=== PATIENT | female | born 1990 | race Caucasian/White ===

== ENCOUNTER 2016-12-12 22:30 | Emergency (ER) | payer MEDICAID ==
[2016-12-12] MEDS ORDERED: LIDOCAINE 5% (700 MG) TRANSDERMAL ADH..PATCH TP ONE (23:51)
[2016-12-12] MEDS ORDERED: AMOXICILLIN TRIHYDRATE 500 MG CAPSULE PO ONE (23:51)
[2016-12-12] MEDS ORDERED: ONDANSETRON ODT 4 MG TAB (6 TAB/DSPK) PO PRN (23:51)
--- NOTE | 2016-12-13 00:02 | ER Document Report ---
ED General - General Chief Complaint: Dizziness Stated Complaint: BACK AND EAR PAIN Time Seen by Provider: 12/12/16 23:28 Notes: Patient is a 26-year-old female who presents with a multitude of apparently unrelated complaints. Her first complaint is that she has constant, throbbing pain to the right ear. Nothing improves or worsens his pain. States that she feels that this is triggering sensations of intermittent vertigo. Denies history of similar symptoms in the past. She is also complaining of mild left. Lumbar spine pain that is been present since she woke up this morning. She chronically has this pain and states is only slightly worse than normal at this time. Denies any bowel or bladder incontinence, difficulty ambulating, weakness or numbness. She has not seen her primary care doctor regarding the above complaints. She denies any chest pain, shortness of breath, focal abdominal pain or dysuria. TRAVEL OUTSIDE OF THE [place] IN LAST 30 DAYS: No - Related Data Allergies/Adverse Reactions: doxycycline [Doxycycline] Allergy (Severe, Verified 12/30/15 14:49) Anaphylaxis metronidazole [From Flagyl] Allergy (Severe, Verified 12/30/15 14:49) Anaphylaxis Metronidazole HCl [From Flagyl] Allergy (Severe, Verified 12/30/15 14:49) Anaphylaxis venom-wasp [Wasp Venom] Allergy (Verified 12/30/15 14:49) Anaphylaxis Past Medical History - General Information source: Patient - Social History Smoking Status: Never Smoker Frequency of alcohol use: None Drug Abuse: None Lives with: Spouse/Significant other Family History: Reviewed & Not Pertinent, Other - There is a family history of epilepsy (the father sister) and elevating muscle cramping (the father). Patient has suicidal ideation: No Patient has homicidal ideation: No - Past Medical History Cardiac Medical History: Reports: Hx Hypertension - preeclampsia Neurological Medical History: Reports: Hx Migraine Renal/ Medical History: Denies: Hx Peritoneal Dialysis Skin Medical History: Denies Hx MRSA Psychiatric Medical History: Reports: Hx Attention Deficit Hyperactivity Disorder, Hx Depression - Immunizations Immunizations up to date: Yes Hx Diphtheria, Pertussis, Tetanus Vaccination: Yes - 09/12/12 Review of Systems - Review of Systems Notes: Constitutional: Negative for fever. HENT: Negative for sore throat. Positive for right ear pain Eyes: Negative for visual changes. Cardiovascular: Negative for chest pain. Respiratory: Negative for shortness of breath. Gastrointestinal: Negative for abdominal pain, vomiting or diarrhea. Genitourinary: Negative for dysuria. Musculoskeletal: Positive for back pain. Skin: Negative for rash. Neurological: Negative for headaches, weakness or numbness. 10 point ROS negative except as marked above and in HPI. Physical Exam - Vital signs Vitals: Temp Pulse Resp BP Pulse Ox 98.3 F 107 H 18 131/94 H 98 12/12/16 22:48 12/12/16 22:48 12/12/16 22:48 12/12/16 22:48 12/12/16 22:48 Interpretation: Normal Notes: PHYSICAL EXAMINATION: GENERAL: Well-appearing, well-nourished and in no acute distress. HEAD: Atraumatic, normocephalic. EYES: Pupils equal round and reactive to light, extraocular movements intact, sclera anicteric, conjunctiva are normal. ENT: nares patent, oropharynx clear without exudates. Moist mucous membranes. Right TM with a purulent effusion. Left TM is clear NECK: Normal range of motion, supple without lymphadenopathy LUNGS: Breath sounds clear to auscultation bilaterally and equal. No wheezes rales or rhonchi. HEART: Regular rate and rhythm without murmurs ABDOMEN: Soft, nontender, normoactive bowel sounds. No guarding, no rebound. No masses appreciated. EXTREMITIES: Normal range of motion, no pitting or edema. No cyanosis. Back: No midline spinal tenderness to step-offs or deformities. Mild pain on palpation of the left maría-lumbar spinal region NEUROLOGICAL: No focal neurological deficits. Moves all extremities spontaneously and on command. PSYCH: Normal mood, normal affect. SKIN: Warm, Dry, normal turgor, no rashes or lesions noted. Course - Re-evaluation Re-evalutation: 12/12/16 23:51 Presentation of a well appearing patient complaining of acute on chronic back pain. No rapid progression of symptoms, systemic symptoms including fevers, chills, weight loss, history of recent bacterial infection, bilateral symptoms, numbness, weakness, difficulty walking, urinary retention or bowel incontinence , personal history of cancer, immunosuppression, diabetes, known AAA, or history of IV drug use. Exam is without point tenderness over vertebral bodies , pulsatile abdominal mass, and patient has symmetric and intact lower extremity strength, sensation, and reflexes without clonus. 2+ symmetric medial malleolar and dorsalis pedis pulses. Based on history and physical, I have a very low suspicion of a concerning etiology of pain including epidural compression syndrome, spinal infection, transverse myelitis, malignancy, abdominal aortic aneurysm, renal colic, acute lower extremity claudication, neurogenic claudication, ankylosing spondylitis, or other intra-abdominal process. Due to absence of concerning risk factors in history and physical as well as absence of rapidly progressive, severe, or bilateral symptoms, will defer imaging at this point. Patient is also complaining of right ear pain with associated vertigo. Otoscopic examination demonstrates a purulent effusion behind the right tympanic membrane with bulging. I suspect this is the cause of her pain and mild vertigo. No pain over the mastoids. Vitals otherwise within normal limits and I do not suspect sepsis. She will be started on amoxicillin 3 times daily for the next 10 days. I have applied a lidocaine patch to her low back. Will also prescribe Zofran and encourage discontinuation of Phenergan which has caused significant sedation as an outpatient. At this time will discharge with return precautions and follow-up recommendations. Verbal discharge instructions given a the bedside and opportunity for questions given. Medication warnings reviewed. Patient is in agreement with this plan and has verbalized understanding of return precautions and the need for primary care follow-up in the next 24-72 hours. - Vital Signs Vital signs: Temp Pulse Resp BP Pulse Ox 98.3 F 94 16 128/86 H 99 12/12/16 22:48 12/13/16 00:16 12/13/16 00:16 12/13/16 00:16 12/13/16 00:16 Discharge - Discharge Clinical Impression: Nausea Left low back pain Qualifiers: Chronicity: acute Sciatica presence: without sciatica Qualified Code(s): M54.5 - Low back pain Right otitis media Qualifiers: Otitis media type: suppurative Chronicity: acute Recurrence: not specified as recurrent Spontaneous tympanic membrane rupture: without spontaneous rupture Qualified Code(s): H66.001 - Acute suppurative otitis media without spontaneous rupture of ear drum, right ear Condition: Good Disposition: HOME, SELF-CARE Additional Instructions: You have been seen in the Emergency Department (ED) today for back pain. Your workup and exam have not shown any acute abnormalities and you are likely suffering from muscle strain or possible problems with your discs, but there is no treatment that will fix your symptoms at this time. You should also purchase a local lidocaine cream such as "aspercreme with lidocaine" and use per bottle instructions to the affected area. Apply heat to the area as often as you are able. Continue to keep active and avoid prolonged periods of bed rest. Please follow up with your doctor as soon as possible regarding today' s ED visit and your back pain. Return to the ED for worsening back pain, fever , weakness or numbness of either leg, or if you develop either (1) an inability to urinate or have bowel movements, or (2) loss of your ability to control your bathroom functions (if you start having "accidents"), or if you develop other new symptoms that concern you. You were also seen today for right ear pain. You have an infection of your right ear and are being started on amoxicillin 3 times daily for the next 10 days. Please take all of the antibiotics until they are gone even if you have resolution of your symptoms before completion of this prescription. Please stop the phenergan. You can take the zofran with which you were sent home as needed for nausea. Prescriptions: Amoxicillin 1 tab PO TID #30 tab Referrals: ANNIE WHITMAN MD [Primary Care Provider] - Follow up as needed
[2016-12-13 00:17] VITALS: BP 128/86
== END 2016-12-13 00:15 | disposition home or self-care (01) ==
LOC: ER 22:30
DX: H66.001 Acute suppurative otitis media without spontaneous rupture of ear drum, right ear (principal); M54.5 Low back pain; G89.29 Other chronic pain; R11.0 Nausea; H92.01 Otalgia, right ear; R42 Dizziness and giddiness; Z88.1 Allergy status to other antibiotic agents; Z87.892 Personal history of anaphylaxis; Z91.038 Other insect allergy status
CPT/HCPCS: 99283; J3490

== ENCOUNTER 2017-03-04 04:49 | Emergency (ER) | payer SELFPAY ==
--- NOTE | 2017-03-04 05:52 | RADIOLOGY REPORT (SQ) ---
EXAM DESCRIPTION: CHEST PA/LAT CLINICAL HISTORY: 26 years, Female, cough COMPARISON: None. NUMBER OF VIEWS: 2 TECHNIQUE: Routine PA and lateral chest radiograph protocol. LIMITATIONS: None. FINDINGS: Bibasilar pulmonary consolidations suspicious for pneumonia. No pleural effusions or pneumothorax. Cardiac size and pulmonary vasculature are normal. Bones are normal. No free peritoneal gas. IMPRESSION: 1. Bibasilar airspace consolidations suspicious for pneumonia. 2011 [employer]- All Rights Reserved
--- NOTE | 2017-03-04 06:28 | ER Document Report ---
ED Flu Like - General Mode of Arrival: Ambulatory Information source: Patient TRAVEL OUTSIDE OF THE [place] IN LAST 30 DAYS: No <ORIN SEXTON - Last Filed: 03/04/17 06:34> <MILKA RICKS - Last Filed: 03/04/17 08:10> - General Chief Complaint: Chest Congestion Stated Complaint: FLU LIKE SYMPTOMS Time Seen by Provider: 03/04/17 06:18 Notes: Patient is a 26 year old female that presents to the emergency department today with complaints of flu-like symptoms for the last three days. Patient denies any recent influenza contacts but does mention that her daughter was recently diagnosed with pneumonia. Patient states she has had a productive cough with yellow sputum and nasal congestion with associated fevers. (ORIN SEXTON) - Related Data Allergies/Adverse Reactions: doxycycline [Doxycycline] Allergy (Severe, Verified 12/30/15 14:49) Anaphylaxis metronidazole [From Flagyl] Allergy (Severe, Verified 12/30/15 14:49) Anaphylaxis Metronidazole HCl [From Flagyl] Allergy (Severe, Verified 12/30/15 14:49) Anaphylaxis venom-wasp [Wasp Venom] Allergy (Verified 12/30/15 14:49) Anaphylaxis Past Medical History - General Information source: Patient - Social History Smoking Status: Never Smoker Cigarette use (# per day): No Frequency of alcohol use: None Drug Abuse: None Lives with: Family Family History: Reviewed & Not Pertinent, Other - There is a family history of epilepsy (the father sister) and elevating muscle cramping (the father). Patient has suicidal ideation: No Patient has homicidal ideation: No - Past Medical History Cardiac Medical History: Reports: Hx Hypertension - preeclampsia Neurological Medical History: Reports: Hx Migraine Psychiatric Medical History: Reports: Hx Attention Deficit Hyperactivity Disorder, Hx Depression Surgical Hx: Negative - Immunizations Immunizations up to date: Yes Hx Diphtheria, Pertussis, Tetanus Vaccination: Yes - 09/12/12 <ORIN SEXTON - Last Filed: 03/04/17 06:34> Review of Systems - Review of Systems Constitutional: See HPI, Fever EENT: See HPI, Nose congestion Cardiovascular: No symptoms reported Respiratory: See HPI, Cough, Wheezing Gastrointestinal: No symptoms reported Genitourinary: No symptoms reported Female Genitourinary: No symptoms reported Musculoskeletal: No symptoms reported Skin: No symptoms reported Hematologic/Lymphatic: No symptoms reported Neurological/Psychological: No symptoms reported -: Yes All other systems reviewed and negative <ORIN SEXTON - Last Filed: 03/04/17 06:34> Physical Exam - Vital signs Interpretation: Normal - General General appearance: Appears well, Alert - HEENT Head: Normocephalic, Atraumatic Eyes: Normal Extraocular movements intact: Yes Pupils: PERRL Tympanic membrane: Retracted - w/ erythema Nasal: Clear rhinorrhea - nasal congestion Pharynx: Erythema - Respiratory Respiratory status: No respiratory distress Breath sounds: Rhonchi, Wheezing Chest palpation: Normal - Cardiovascular Rhythm: Regular Heart sounds: Normal auscultation Murmur: No - Abdominal Inspection: Normal Distension: No distension Bowel sounds: Normal Tenderness: Nontender Organomegaly: No organomegaly - Back Back: Normal, Nontender - Extremities General upper extremity: Normal inspection, Normal ROM. No: Edema General lower extremity: Normal inspection, Normal ROM. No: Edema - Neurological Neuro grossly intact: Yes Cognition: Normal Orientation: AAOx4 Judy Coma Scale Eye Opening: Spontaneous [place] Coma Scale Verbal: Oriented Judy Coma Scale Motor: Obeys Commands [place] Coma Scale Total: 15 Speech: Normal - Psychological Associated symptoms: Normal affect, Normal mood - Skin Skin Temperature: Warm Skin Moisture: Dry Skin Color: Normal <ORIN SEXTON - Last Filed: 03/04/17 06:34> - Vital signs Vitals: Temp Pulse Resp BP Pulse Ox 97.8 F 128 H 28 H 125/86 H 96 03/04/17 05:05 03/04/17 05:05 03/04/17 05:05 03/04/17 05:05 03/04/17 05:05 Course - Laboratory Result Diagrams: 03/04/17 06:43 03/04/17 06:43 - Diagnostic Test Radiology reviewed: Image reviewed, Reports reviewed - Chest x-ray shows bibasilar infiltrates that are new since prior x-rays <MILKA RICKS - Last Filed: 03/04/17 08:10> - Vital Signs Vital signs: Temp Pulse Resp BP Pulse Ox 97.8 F 128 H 28 H 129/82 H 99 03/04/17 05:05 03/04/17 05:05 03/04/17 05:05 03/04/17 06:50 03/04/17 06:50 Discharge <ORIN SEXTON Last Filed: 03/04/17 06:34> <MILKA RICKS - Last Filed: 03/04/17 08:10> - Discharge Clinical Impression: Pneumonia Qualifiers: Pneumonia type: due to unspecified organism Laterality: bilateral Lung location : lower lobe of lung Qualified Code(s): J18.9 - Pneumonia, unspecified organism Condition: Stable Disposition: HOME, SELF-CARE Additional Instructions: Pneumonia: Your examination indicates that you MAY have pneumonia. This is an infection of the lung tissue, usually caused by bacteria or a virus. Symptoms include cough, fever, shaking chills, chest pain, shortness of breath, and coughing up bloody sputum. Treatment for bacterial pneumonia includes rest, antibiotics, increasing your clear liquid intake, a cool mist humidifier at your bedside, and fever medication. Often, a repeat chest X-ray is performed in a few weeks--even if you feel better--to ascertain whether the infection has completely resolved and no underlying lung problem is present. You should call the physician if you develop persistent vomiting, high fever that does not respond to fever medication, increasing shortness of breath , confusion, or lethargy. Also, failure to improve within two to three days is an indication for re-examination. TAKE THE AZITHROMYCIN PRESCRIBED--START TOMORROW. USE THE INHALER 2 PUFFS EVERY 4 HOURS NEEDED FOR WHEEZING AND SHORTNESS OF BREATH. TRY ROBITUSSIN-DM TO SUPPRESS COUGH. DRINK PLENTY OF FLUIDS. GET PLENTY OF REST. FOLLOW UP WITH YOUR PRIMARY CARE DOCTOR IF NOT IMPROVING. RETURN TO THE EMERGENCY ROOM IF ANY NEW OR WORSENING SYMPTOMS. Prescriptions: Azithromycin [Zithromax 250 mg Tablet] 250 mg PO DAILY #4 tablet Scribe Attestation: 03/04/17 08:09 I personally performed the services described in the documentation, reviewed and edited the documentation which was dictated to the scribe in my presence, and it accurately records my words and actions. (MILKA RICKS) Scribe Documentation - Scribe Written by Clara:: Clara Edwards, 03/04/2017 [id number] acting as scribe for :: Karthik <ORIN SEXTON - Last Filed: 03/04/17 06:34>
[2017-03-04 07:07] LABS: ABSOLUTE EOSINOPHILS # (AUTO) 0.1 10^3/uL (0.0-0.6); ABSOLUTE LYMPHOCYTES (AUTO) 1.5 10^3/uL (0.5-4.7); ABSOLUTE MONOCYTES (AUTO) 0.5 10^3/uL (0.1-1.4); ABSOLUTE NEUT (AUTO) 5.1 10^3/uL (1.7-8.2); BASOPHILS % (AUTO) 0.4 % (0-2); EOSINOPHILS % (AUTO) 1.7 % (0-6); HEMATOCRIT 39.7 % (36.0-47.0); HEMOGLOBIN 13.6 g/dL (12.0-15.5); HGB HCT DIFFERENCE 1.1; MEAN CORPUSCULAR HGB CONC 34.2 g/dL (32.0-36.0); MEAN CORPUSCULAR VOLUME 88 fl (80-97); MONOCYTES % (AUTO) 7.1 % (3-13); RED BLOOD COUNT 4.53 10^6/uL (3.72-5.28); SEGMENTED NEUTROPHILS % (AUTO) 69.8 % (42-78); WHITE BLOOD COUNT 7.3 10^3/uL (4.0-10.5)
[2017-03-04 07:37] LABS: ALANINE AMINOTRANSFERASE 32 U/L (9-52); ALBUMIN 3.7 g/dL (3.5-5.0); ALKALINE PHOSPHATASE 51 U/L (38-126); ANION GAP 12 (5-19); ASPARTATE AMINO TRANSFERASE 15 U/L (14-36); BILIRUBIN,DIRECT 0.3 mg/dL (0.0-0.4); BILIRUBIN,TOTAL 0.3 mg/dL (0.2-1.3); BLOOD UREA NITROGEN 8 mg/dL (7-20); CALCIUM 9.2 mg/dL (8.4-10.2); CARBON DIOXIDE 23 mmol/L (22-30); CHLORIDE 106 mmol/L (98-107); CREATININE RESULT 0.61 mg/dL (0.52-1.25); GLUCOSE 104 mg/dL (75-110); POTASSIUM 3.9 mmol/L (3.6-5.0); SODIUM 140.6 mmol/L (137-145); TOTAL PROTEIN 6.6 g/dL (6.3-8.2)
[2017-03-04] MEDS ORDERED: ALBUTEROL SULFATE HFA (90 MCG/PUFF) 8 GM MDI (1 MDI/ER DISP) IH ONE (08:10)
[2017-03-04] MEDS ORDERED: AZITHROMYCIN 250 MG TABLET PO ONE (08:10)
[2017-03-04 08:35] VITALS: BP 120/84
== END 2017-03-04 08:36 | disposition home or self-care (01) ==
LOC: ER 04:49
DX: J18.9 Pneumonia, unspecified organism (principal); R50.9 Fever, unspecified
CPT/HCPCS: 99284; 36415; 87070; 87205; 85025; 80053; 87804; 71020; J3490

== ENCOUNTER 2017-05-20 17:19 | Emergency (ER) | payer SELFPAY ==
[2017-05-20 17:24] VITALS: BP 123/72
--- NOTE | 2017-05-20 17:43 | ER Document Report ---
ED General - General Chief Complaint: Sore Throat Stated Complaint: SORE THROAT Time Seen by Provider: 05/20/17 17:40 Mode of Arrival: Ambulatory Information source: Patient Notes: Patient is a 26 year old female with sore throat, fever (has not checked temperature at home), and right ear pain that started 2 days ago. She states she has history of strep, gets it 5x/year and this feels the same. She reports taking tylenol to help with fever, denies headache, neck pain/stiffness, difficulty swallowing, drooling, n/v/d. She is speaking in full sentences without difficulty. TRAVEL OUTSIDE OF THE [place] IN LAST 30 DAYS: No - Related Data Allergies/Adverse Reactions: doxycycline [Doxycycline] Allergy (Severe, Verified 05/20/17 17:20) Anaphylaxis metronidazole [From Flagyl] Allergy (Severe, Verified 05/20/17 17:20) Anaphylaxis Metronidazole HCl [From Flagyl] Allergy (Severe, Verified 05/20/17 17:20) Anaphylaxis venom-wasp [Wasp Venom] Allergy (Verified 05/20/17 17:20) Anaphylaxis Past Medical History - General Information source: Patient - Social History Smoking Status: Current Every Day Smoker Family History: Reviewed & Not Pertinent, Other - There is a family history of epilepsy (the father sister) and elevating muscle cramping (the father). - Past Medical History Cardiac Medical History: Reports: Hx Hypertension - preeclampsia Neurological Medical History: Reports: Hx Migraine Renal/ Medical History: Denies: Hx Peritoneal Dialysis Skin Medical History: Denies Hx MRSA Psychiatric Medical History: Reports: Hx Attention Deficit Hyperactivity Disorder, Hx Depression - Immunizations Immunizations up to date: Yes Hx Diphtheria, Pertussis, Tetanus Vaccination: Yes - 09/12/12 Review of Systems - Review of Systems Constitutional: See HPI EENT: See HPI Cardiovascular: No symptoms reported Respiratory: No symptoms reported Gastrointestinal: No symptoms reported Genitourinary: No symptoms reported Female Genitourinary: No symptoms reported Musculoskeletal: No symptoms reported Skin: No symptoms reported Hematologic/Lymphatic: No symptoms reported Neurological/Psychological: No symptoms reported Physical Exam - Vital signs Vitals: Temp Pulse Resp BP Pulse Ox 98.2 F 121 H 16 123/72 100 05/20/17 17:23 05/20/17 17:23 05/20/17 17:23 05/20/17 17:23 05/20/17 17:23 - Notes Notes: PHYSICAL EXAM: CONSTITUTIONAL: Alert and oriented, well-appearing and in no acute distress. HENT: Normocephalic, atraumatic. Ear canals without erythema or foreign body, TMs pearly lora with good bony landmarks. Nares clear without erythema, septal hematoma or deviation, airway patent. Oropharynx erythematous with b/l tonsillar exudates and enlargement, no malocclusion. Trachea midline. Uvula midline. Moist mucous membranes. EYES: Pupils equal round and reactive to light, EOM intact. Sclera anicteric, conjunctiva are normal. No entrapment. NECK: supple without lymphadenopathy. No midline tenderness or paraspinous muscle spasms. No step-offs or deformities. ROM intact. HEART: Regular rate and rhythm without murmurs. LUNGS: CTAB and equal. No wheezes, rales or rhonchi. BACK: nontender, no paraspinous spasm, 5+/5 strengths, DTRs 2+, SLR -. EXTREMITIES: Normal range of motion, no pitting edema. No cyanosis. Cap Refill < 3 seconds. NEURO: Cranial nerves grossly intact. Normal sensory/motor exams. PSYCH: Normal mood, normal affect. SKIN: Warm and dry. Normal turgor. No rashes or lesions noted. Course - Re-evaluation Re-evalutation: 05/20/17 17:43 Patient seen and examined. Well-appearing, mildly tachycardic but currently afebrile; otherwise hemodynamically stable. She is not hypoxic. Exam consistent with strep pharyngitis, given IM decadron here and will prescribe oral abx. Low suspicion for peritonsillar abscess, meningitis, sepsis or other emergent condition at this time. Patient in agreement with plan. At this time, will discharge with return precautions and follow-up recommendations. Verbal discharge instructions given at the bedside and opportunity for questions given. Medication warnings reviewed. Patient is in agreement with this plan and has verbalized understanding of return precautions and the need for primary care follow-up in the next 24-72 hours. - Vital Signs Vital signs: Temp Pulse Resp BP Pulse Ox 98.2 F 121 H 16 123/72 100 05/20/17 17:23 05/20/17 17:23 05/20/17 17:23 05/20/17 17:23 05/20/17 17:23 Discharge - Discharge Clinical Impression: Strep pharyngitis Condition: Stable Disposition: HOME, SELF-CARE Additional Instructions: SORE THROAT: Sore throats may be caused by viruses, bacteria, or fungi. Most are due to a virus, and must get better on their own. Bacterial sore throats, particularly those due to "strep," need treatment with antibiotics. If an antibiotic is prescribed, be sure to take the medication for a full 10 days. Failure to take the antibiotic can result in complications such as rheumatic fever. Sometimes, an injection of antibiotics is given instead of pills or liquid. This single "shot" is equal in effectiveness to the oral medication. To relieve symptoms, take acetaminophen for pain. Sip clear liquids frequently, or eat popsicles or ice chips. Anesthetic sprays or lozenges may help. Make sure the air in the room is not too dry. Avoid using decongestants or antihistamines. Call the doctor if there is no improvement in two days, or if you have difficulty breathing, increasing throat pain, high fever, rash, or frequent vomiting. STREP THROAT: Your sore throat is due to the streptococcus germ (strep throat). Strep throat usually makes you feel quite ill with fever and aches, headache, swollen sore throat, and tender bumps under the angles of the jaw. Strep throat requires antibiotic treatment. Although the sore throat may go away by itself, complications such as rheumatic fever, kidney disease, or throat abscess can occur. We usually prescribe antibiotics by mouth. Be sure to take the medicine until it's gone. If you stop early, the strep may come back. If you are vomiting, are severely ill, or can't remember to take pills, we can give you an antibiotic shot. Take acetaminophen or ibuprofen for pain and fever. Sip frequent clear liquids, or use popsicles or ice chips. Anesthetic sprays or lozenges may help. Make sure the air in the room is not too dry. Avoid using decongestants or antihistamines. Call the doctor if there is no improvement in three days, or if you have difficulty breathing, increasing throat pain, high fever, rash, or frequent vomiting. STEROID MEDICATION: You have been given a medicine of the cortisone/steroid class. This medication is used to control inflammation or allergy. It is usually only given for a short period of time, until the acute process subsides. There are usually no side effects from short-term use of cortisone-like medications. Some persons feel an increased sense of well-being and are not sleepy at bedtime. Long-term use of cortisone medications is best avoided, unless required for a severe condition. If your condition does not remit, or relapses after the course of corticosteroid medication, you should consult your physician. FOLLOW-UP CARE: If you have been referred to a physician for follow-up care, call the physician s office for an appointment as you were instructed or within the next two days. If you experience worsening or a significant change in your symptoms, notify the physician immediately or return to the Emergency Department at any time for re-evaluation. Prescriptions: Amox Tr/Potassium Clavulanate [Augmentin 875-125 mg Tablet] 1 tab PO BID #20 tablet
[2017-05-20] MEDS ORDERED: DEXAMETHASONE SOD PHOS INJ 10 MG/1 ML VIAL IM ONE (17:51)
== END 2017-05-20 18:15 | disposition home or self-care (01) ==
LOC: ER 17:19
DX: J02.0 Streptococcal pharyngitis (principal); H92.01 Otalgia, right ear; R00.0 Tachycardia, unspecified; F17.200 Nicotine dependence, unspecified, uncomplicated; Z87.892 Personal history of anaphylaxis; Z88.1 Allergy status to other antibiotic agents; Z91.038 Other insect allergy status
CPT/HCPCS: 99282; 96372; J1100

== ENCOUNTER 2017-09-08 19:10 | Emergency (ER) | payer MEDICAID ==
--- NOTE | 2017-09-08 20:25 | ER Document Report ---
ED Extremity Problem, Upper - General Chief Complaint: Shoulder Pain Stated Complaint: RIGHT SHOULDER PAIN Time Seen by Provider: 09/08/17 20:08 TRAVEL OUTSIDE OF THE [place] IN LAST 30 DAYS: No - Related Data Allergies/Adverse Reactions: doxycycline [Doxycycline] Allergy (Severe, Verified 09/08/17 19:15) Anaphylaxis metronidazole [From Flagyl] Allergy (Severe, Verified 09/08/17 19:15) Anaphylaxis Metronidazole HCl [From Flagyl] Allergy (Severe, Verified 09/08/17 19:15) Anaphylaxis venom-wasp [Wasp Venom] Allergy (Verified 09/08/17 19:15) Anaphylaxis Past Medical History - Social History Family History: Reviewed & Not Pertinent, Other - There is a family history of epilepsy (the father sister) and elevating muscle cramping (the father). - Past Medical History Cardiac Medical History: Reports: Hx Hypertension - preeclampsia Neurological Medical History: Reports: Hx Migraine Renal/ Medical History: Denies: Hx Peritoneal Dialysis Skin Medical History: Denies Hx MRSA Psychiatric Medical History: Reports: Hx Attention Deficit Hyperactivity Disorder, Hx Depression - Immunizations Immunizations up to date: Yes Hx Diphtheria, Pertussis, Tetanus Vaccination: Yes - 09/12/12 Physical Exam - Vital signs Vitals: Temp Pulse Resp BP Pulse Ox 97.7 F 115 H 16 133/93 H 98 09/08/17 19:18 09/08/17 19:18 09/08/17 19:18 09/08/17 19:18 09/08/17 19:18 Course - Vital Signs Vital signs: Temp Pulse Resp BP Pulse Ox 97.7 F 115 H 16 133/93 H 98 09/08/17 19:18 09/08/17 19:18 09/08/17 19:18 09/08/17 19:18 09/08/17 19:18
--- NOTE | 2017-09-08 20:56 | RADIOLOGY REPORT (SQ) ---
EXAM DESCRIPTION: SHOULDER RIGHT 2 OR MORE VIEWS COMPLETED DATE/TIME: 09/08/2017 8:47 pm REASON FOR STUDY: twisted shoulder, cant move COMPARISON: None. NUMBER OF VIEWS: Three views. TECHNIQUE: Internal rotation, external rotation, and Y view images acquired of the right shoulder. LIMITATIONS: None. FINDINGS: MINERALIZATION: Normal. BONES: No acute fracture or dislocation. No worrisome bone lesions. JOINTS: No dislocation. VISUALIZED LUNGS AND RIBS: No pneumothorax. No rib fracture. SOFT TISSUES: No radiopaque foreign body. OTHER: No other significant finding. IMPRESSION: NEGATIVE STUDY OF THE RIGHT SHOULDER. NO RADIOGRAPHIC EVIDENCE OF ACUTE INJURY. TECHNICAL DOCUMENTATION: JOB ID: [id number]- All Rights Reserved Reading location - IP/workstation name: [email or web address]
--- NOTE | 2017-09-08 21:17 | ER Document Report ---
ED Extremity Problem, Upper - General Chief Complaint: Shoulder Pain Stated Complaint: RIGHT SHOULDER PAIN Time Seen by Provider: 09/08/17 20:08 Mode of Arrival: Ambulatory Information source: Patient Notes: 27-year-old female presents to ED for complaint of pain to the right arm and shoulder and neck. She states she has been having pain for about 2 years worse for the last 2 months. She states she has been to Dr. Espinosa multiple times and he has been trying to get a MRI approved by Medicaid has not. She states the muscles from her neck shoulder and arm are all very tender and painful. She states it is painful to turn her head to the right or put her head down. She is afebrile. She states this all became much worse last night when her son grabbed her arm and twisted it. TRAVEL OUTSIDE OF THE [place] IN LAST 30 DAYS: No - HPI Patient complains to provider of: Pain, Shoulder, Other - neck Onset: Other - 2years Recent injury: Possibly Where: Home, Indoors Quality of pain: Sharp, Throbbing Severity of pain: Severe, Worse Pain Level: 5 Associated symptoms: Other - Pain in neck and right shoulder, worse with movement of neck or right arm, pain has been for 2 years worse for the last 2 weeks. Exacerbated by: Movement Relieved by: Nothing Similar symptoms previously: Yes Recently seen / treated by doctor: Yes - Related Data Allergies/Adverse Reactions: doxycycline [Doxycycline] Allergy (Severe, Verified 09/08/17 19:15) Anaphylaxis metronidazole [From Flagyl] Allergy (Severe, Verified 09/08/17 19:15) Anaphylaxis Metronidazole HCl [From Flagyl] Allergy (Severe, Verified 09/08/17 19:15) Anaphylaxis venom-wasp [Wasp Venom] Allergy (Verified 09/08/17 19:15) Anaphylaxis Past Medical History - General Information source: Patient - Social History Smoking Status: Former Smoker Cigarette use (# per day): No Chew tobacco use (# tins/day): No Smoking Education Provided: No Frequency of alcohol use: None Drug Abuse: None Lives with: Family Family History: Reviewed & Not Pertinent, Other - There is a family history of epilepsy (the father sister) and elevating muscle cramping (the father). Patient has suicidal ideation: No Patient has homicidal ideation: No - Past Medical History Cardiac Medical History: Reports: Hx Hypertension - preeclampsia Pulmonary Medical History: Reports: None EENT Medical History: Reports: None Neurological Medical History: Reports: Hx Migraine, Hx Seizures Endocrine Medical History: Reports: None Renal/ Medical History: Reports: None Malignancy Medical History: Reports: None GI Medical History: Reports: None Musculoskeltal Medical History: Reports Hx Musculoskeletal Deformity, Reports Hx Musculoskeletal Trauma Psychiatric Medical History: Reports: Hx Anxiety, Hx Attention Deficit Hyperactivity Disorder, Hx Depression Traumatic Medical History: Reports: None Infectious Medical History: Reports: None Surgical Hx: Negative Past Surgical History: Reports: None - Immunizations Immunizations up to date: Yes Hx Diphtheria, Pertussis, Tetanus Vaccination: Yes - 09/12/12 Review of Systems - Review of Systems Constitutional: No symptoms reported EENT: No symptoms reported Cardiovascular: No symptoms reported Respiratory: No symptoms reported Gastrointestinal: No symptoms reported Genitourinary: No symptoms reported Female Genitourinary: No symptoms reported Musculoskeletal: Joint pain - right shoulder, Muscle pain, Muscle stiffness, Neck pain Skin: No symptoms reported Hematologic/Lymphatic: No symptoms reported Neurological/Psychological: No symptoms reported -: Yes All other systems reviewed and negative Physical Exam - Vital signs Vitals: Temp Pulse Resp BP Pulse Ox 97.7 F 115 H 16 133/93 H 98 09/08/17 19:18 09/08/17 19:18 09/08/17 19:18 09/08/17 19:18 09/08/17 19:18 Interpretation: Normal - General General appearance: Appears well, Alert - HEENT Head: Normocephalic, Atraumatic Eyes: Normal Pupils: PERRL Ears: Normal External canal: Normal Tympanic membrane: Normal Sinus: Normal Nasal: Normal Mouth/Lips: Caries Mucous membranes: Normal Pharynx: Normal Neck: Normal - Respiratory Respiratory status: No respiratory distress Chest status: Nontender Breath sounds: Normal Chest palpation: Normal - Cardiovascular Rhythm: Regular Heart sounds: Normal auscultation Murmur: No - Abdominal Inspection: Normal Distension: No distension Bowel sounds: Normal Tenderness: Nontender Organomegaly: No organomegaly - Back Back: Normal, Tender - cervical spine, Vertebra tenderness, Other - tenderness to neck and shoulder muscles. No: Deformity/step-off, CVA tenderness, Scars, Scoliosis, Wounds - Extremities General upper extremity: Normal inspection, Normal color, Normal temperature General lower extremity: Normal inspection, Nontender, Normal color, Normal ROM , Normal temperature, Normal weight bearing. No: Christina's sign Shoulder: Tender, Limited ROM - Due to pain. No: Abrasion, Deformity, Dislocation, Ecchymosis, Instability, Laceration - Neurological Neuro grossly intact: Yes Cognition: Normal Orientation: AAOx4 [place] Coma Scale Eye Opening: Spontaneous Judy Coma Scale Verbal: Oriented [place] Coma Scale Motor: Obeys Commands Judy Coma Scale Total: 15 Speech: Normal Motor strength normal: LUE, RUE, LLE, RLE Sensory: Normal - Psychological Associated symptoms: Normal affect, Normal mood - Skin Skin Temperature: Warm Skin Moisture: Dry Skin Color: Normal Course - Re-evaluation Re-evalutation: 09/09/17 02:20 Patient is seen for shoulder pain that she has had for a long time. She is on narcotic medication for her chronic pain, as well as Valium for seizures. Her x -rays are negative. Patient was instructed to follow-up with her primary care doctor as well as orthopedics. - Vital Signs Vital signs: Temp Pulse Resp BP Pulse Ox 98.7 F 98 16 124/85 100 09/08/17 22:05 09/08/17 22:05 09/08/17 19:18 09/08/17 22:05 09/08/17 22:05 - Diagnostic Test Radiology reviewed: Image reviewed, Reports reviewed Procedures - Immobilization Right Shoulder Time completed: 22:08 Pre-Proc Neuro Vasc Exam: Normal Immobilizer type: Sling Performed by: PCT Post-Proc Neuro Vasc Exam: Normal Alignment checked and good: Yes Discharge - Discharge Clinical Impression: Neck pain of over 3 months duration Pain in right shoulder Qualifiers: Chronicity: chronic Qualified Code(s): M25.511 - Pain in right shoulder Condition: Stable Disposition: HOME, SELF-CARE Additional Instructions: You were seen today for shoulder pain to the right shoulder that you state has been going on for about 2 years. You state that it got worse about 2 weeks ago and then the pain came unbearable after your son twisted your arm last night. Your x-rays are negative for any bony abnormality. Your CT of the cervical spine was negative for any bony abnormalities. You state you have been going to see Jesús for this shoulder pain and have been trying to get an MRI approved for this shoulder pain. You state you have hydrocodone 10/325 that you take for your pain. You state you are taken diazepam for your seizures she is also a muscle relaxer. Chronic Pain Control Stress, inactivity, and depression make pain more severe regardless of the cause of the pain. Stress and poor physical condition can cause pain such as headaches and backache. Relaxation: Rest in a quiet place with your eyes closed for 20 minutes twice daily. Concentrate on a pleasant image, or simply "feel" your breathing. Clear your mind. Stress management: Deal with your "stressors." Either take action, or eliminate the stressor from your life. Don't let things hang over you. Accept those things you can't change. Nutrition: Eat small, balanced meals -- don't skip, don't overeat. Meals should be high-carbohydrate, low-sugar, low-fat. Exercise: Exercise helps painful conditions and eases stress. Get 30 minutes of moderate exercise, five days a week. Do an activity that does not flare your pain. Precautions: Pain which continues to disrupt daily activities, or which changes in nature, requires a medical evaluation. Pain Clinic referral is available. We do not manage chronic pain in the Emergency Department. We will try to appropriately help you through an acute flare of your chronic painful condition , but for on-going chronic pain that does not improve, you will need to see your private doctor or house painting instructor. We do not provide repeated medication management of chronic painful conditions. If you wish, we can provide the name of local pain management physicians. Exercise Program for the Shoulder Since the shoulder moves in so many directions, the joint attachment is weak. Muscles provide most of the stability to the shoulder. You must exercise your shoulder to prevent painful instability or stiffening. PASSIVE - These may be begun within a few days of the injury. While standing, lean forward, allowing the arm to hang down towards the floor. Move the arm in small circles while slowly twisting your chest towards and away from the hanging arm. Do this for one minute. ACTIVE - These may be performed when the doctor gives permission. Begin with the arms at the sides. Raise the arms forward (shoulder's width apart) until they reach shoulder level. Then slowly swing both arms back until they are aiming straight out away from each other. Then bring them forward again, and finally, lower them to your sides. Repeat 20 to 30 times. As you improve, put weights in your hands for the exercise. Start with one pound, and work up to 10 pounds. Never use more than is comfortable. Athletes may work up to 30 pounds. She just happened to be coming out MUSCLE STRAIN: You have strained a muscle -- torn the fibers within the muscle. This often occurs with strenuous exertion, or during an injury that suddenly stretches the muscle. The seriousness of a strain varies. Some strains heal within days, others cause problems for months. X-rays cannot show a muscle strain. X-rays are taken only if symptoms suggest that a fracture could be present. The usual treatment of a muscle strain is rest and ice packs. Sometimes, a sling, splint, or crutches may be necessary to rest the muscle. The muscle can be used again once pain subsides. Severe strains require a special exercise and stretching program to prevent permanent stiffness and disability. Your doctor will advise you if this will be necessary. Call the doctor immediately if pain or swelling becomes severe, or if numbness or discoloration develop. ICE PACKS: Apply ice packs frequently against the painful area. Many different schedules are recommended, such as "20 minutes on, 20 minutes off" or "one hour ice, two hours rest." If you need to work, you may need to go longer between ice treatments. You should plan to have the area ice packed AT LEAST one fourth of the time. The ice should be applied over the wrap, tape, or splint, or over a layer of cloth -- not directly against the skin. Some ice bags have a built-in cloth and can be put directly on the skin. WARM PACKS: After approximately two days, apply gentle heat (such as a heating pad or hot water bottle) for about 20 to 30 minutes about every two hours -- at least four times daily. Warmth and elevation will help you make a more rapid recovery , and will ease the pain considerably. Do not use HOT heat, and never apply heat for longer than 30 minutes. The continuous heat can invisibly damage skin and muscles -- even when no burn is seen on the surface. Damaged muscles can make you MORE sore. FOLLOW-UP CARE: If you have been referred to a physician for follow-up care, call the physician s office for an appointment as you were instructed or within the next two days. If you experience worsening or a significant change in your symptoms, notify the physician immediately or return to the Emergency Department at any time for re-evaluation. Forms: Elevated Blood Pressure Referrals: HERNESTO CALDERON MD [ACTIVE STAFF] - Follow up as needed MILDRED ESPINOSA MD [EMERITUS] - Follow up as needed
--- NOTE | 2017-09-08 21:32 | RADIOLOGY REPORT (SQ) ---
EXAM DESCRIPTION: CT CERVICAL SPINE WITHOUT COMPLETED DATE/TIME: 09/08/2017 9:21 pm REASON FOR STUDY: cervical spine tenderness COMPARISON: None. TECHNIQUE: Axial images acquired through the cervical spine without intravenous contrast. Images re viewed with lung, soft tissue and bone windows. Reconstructed coronal and sagittal MPR images review ed. Images stored on PACS. All CT scanners at this facility use dose modulation, iterative reconstruction, and/or weight based d osing when appropriate to reduce radiation dose to as low as reasonably achievable (ALARA). [facility]: Dose Right [facility]: CareDose [facility]: Dose Right [facility]: Teradose 4D [facility]: [employer] RADIATION DOSE: CT Rad equipment meets quality standard of care and radiation dose reduction techniq ues were employed. CTDIvol: 12.2 mGy. DLP: 259 mGy-cm. mGy. LIMITATIONS: None. FINDINGS: ALIGNMENT: Anatomic. MINERALIZATION: Normal. VERTEBRAL BODIES: No fractures or dislocation. DISCS: No significant disc disease. FACETS, LATERAL MASSES, POSTERIOR ELEMENTS: No fractures. No dislocation. No acute findings. HARDWARE: None in the spine. VISUALIZED RIBS: No fractures. LUNG APICES AND SOFT TISSUES: No significant or acute findings. OTHER: No other significant finding. IMPRESSION: NO ACUTE OR SIGNIFICANT FINDINGS IN THE CERVICAL SPINE. TECHNICAL DOCUMENTATION: JOB ID: [id number] Quality ID # [id number]: Final reports with documentation of one or more dose reduction techniques (e.g., Au tomated exposure control, adjustment of the mA and/or kV according to patient size, use of iterative reconstruction technique) 2010 [employer]- All Rights Reserved Reading location - IP/workstation name: [email or web address]
[2017-09-08 22:08] VITALS: BP 124/85
== END 2017-09-08 22:27 | disposition home or self-care (01) ==
LOC: ER 19:10
DX: G89.29 Other chronic pain (principal); M25.511 Pain in right shoulder; Z79.891 Long term (current) use of opiate analgesic; M54.2 Cervicalgia; M79.601 Pain in right arm; K02.9 Dental caries, unspecified; R56.9 Unspecified convulsions; Z79.899 Other long term (current) drug therapy; Z87.892 Personal history of anaphylaxis; Z88.1 Allergy status to other antibiotic agents; Z91.038 Other insect allergy status; Z87.891 Personal history of nicotine dependence
CPT/HCPCS: 72125; 99284

== ENCOUNTER 2017-11-05 15:07 | Emergency (ER) | payer MEDICAID ==
[2017-11-05 15:14] VITALS: BP 119/74
[2017-11-05] MEDS ORDERED: DEXAMETHASONE SOD PHOS INJ 10 MG/1 ML VIAL IV ONE (15:47)
[2017-11-05] MEDS ORDERED: IBUPROFEN SUSP 100 MG/5 ML ORAL SYRINGE PO ONE (15:47)
[2017-11-05] MEDS ORDERED: PENICILLIN G BENZATHINE 1.2 MILLION UNIT/2 ML DISP.SYRIN IM ONE (15:47)
[2017-11-05] MEDS ORDERED: NORMAL SALINE 1000 ML 1,000 ML IV ONE (15:50)
--- NOTE | 2017-11-05 15:56 | ER Document Report ---
ED ENT - General Chief Complaint: Ear Pain Stated Complaint: EAR PAIN/SORE THROAT Time Seen by Provider: 11/05/17 15:31 Notes: Patient is a 27-year-old female presents emergency room with a chief complaint of bilateral ear pain left worse than the right, sore throat. Patient states that her symptoms started with sore throat and right ear pain 3 days ago and and his progressed to affecting her left ear. She denies any fevers today and has been taking Tylenol and Motrin at home. States her last dose of Tylenol was yesterday. Patient states that she saw her primary care doctor 2 days ago was diagnosed with strep and right otitis media and sent home on a p.o. antibiotic. Family member at the bedside states that she is not taking any antibiotics and he just picked up today. Otherwise admits to subjective fevers at home. Admits to pain but able to tolerate p.o. fluids. TRAVEL OUTSIDE OF THE [place] IN LAST 30 DAYS: No - Related Data Allergies/Adverse Reactions: doxycycline [Doxycycline] Allergy (Severe, Verified 09/08/17 19:15) Anaphylaxis metronidazole [From Flagyl] Allergy (Severe, Verified 09/08/17 19:15) Anaphylaxis Metronidazole HCl [From Flagyl] Allergy (Severe, Verified 09/08/17 19:15) Anaphylaxis Sulfa (Sulfonamide Antibiotics) Allergy (Verified 11/05/17 15:09) venom-wasp [Wasp Venom] Allergy (Verified 09/08/17 19:15) Anaphylaxis Past Medical History - Social History Smoking Status: Current Every Day Smoker Family History: Reviewed & Not Pertinent, Other - There is a family history of epilepsy (the father sister) and elevating muscle cramping (the father). - Past Medical History Cardiac Medical History: Reports: Hx Hypertension - preeclampsia Neurological Medical History: Reports: Hx Migraine, Hx Seizures Renal/ Medical History: Denies: Hx Peritoneal Dialysis Musculoskeltal Medical History: Reports Hx Musculoskeletal Deformity, Reports Hx Musculoskeletal Trauma Skin Medical History: Denies Hx MRSA Psychiatric Medical History: Reports: Hx Anxiety, Hx Attention Deficit Hyperactivity Disorder, Hx Depression - Immunizations Immunizations up to date: Yes Hx Diphtheria, Pertussis, Tetanus Vaccination: Yes - 09/12/12 Review of Systems - Review of Systems Constitutional: See HPI EENT: See HPI Cardiovascular: No symptoms reported Respiratory: No symptoms reported Gastrointestinal: No symptoms reported Musculoskeletal: No symptoms reported Skin: No symptoms reported -: Yes All other systems reviewed and negative Physical Exam - Vital signs Vitals: Temp Pulse Resp BP Pulse Ox 98.8 F 117 H 16 119/74 99 11/05/17 15:11 11/05/17 15:11 11/05/17 15:11 11/05/17 15:11 11/05/17 15:11 - Notes Notes: PHYSICAL EXAM GENERAL: Alert, interacts well. HEENT: NCAT, pale conjunctiva, extraocular movements intact, pupils PERRL. external ear normal, left with evidence of external auditory canal tenderness, without blood/drainage, cerumen impaction, B/l TM intact with evidence of bulging, injection, MMM, Uvula midline. Airway patent. Evidence of pharyngeal erythema b/l. No evidence of tonsillar enlargement, peritonsillar abscess, retropharyngeal abscess. NECK: Full range of motion. Supple. Trachea midline. LUNGS: Clear to auscultation bilaterally, no wheezes, rales, or rhonchi. No respiratory distress. HEART: Regular rate and rhythm. No murmurs, gallops, or rubs. ABDOMEN: Soft, nondistended, nontender. No guarding, rebound, or rigidity.. Bowel sounds present in all 4 quadrants. EXTREMITIES: Moves all 4 extremities spontaneously. No edema, radial and dorsalis pedis pulses 2/4 bilaterally. No cyanosis. NEUROLOGICAL: Alert and oriented x4. Normal speech. PSYCH: Normal affect, normal mood. SKIN: Warm, dry, normal turgor. No rashes or lesions noted. Course - Re-evaluation Re-evalutation: 11/05/17 17:24 Presentation is most consistent with a viral upper respiratory infection. With associated bilateral otitis media and otitis externa in the left ear patient is overall well appearance, vitals within normal limits, well-hydrated. Patient denies any headache, neck pain, and has no evidence of meningismus on examination. Lungs are clear bilaterally. No evidence of respiratory distress. Based on clinical exam and history, I do not suspect an acute pneumonia, meningitis, strep pharyngitis, or an acute encephalitis. No laboratory or imaging testing is indicated at this time. Will discharge patient with return precautions and followup recommendations. They are in agreement this plan have verbalized understanding return precautions. - Vital Signs Vital signs: Temp Pulse Resp BP Pulse Ox 98.8 F 117 H 16 119/74 99 11/05/17 15:11 11/05/17 15:11 11/05/17 15:11 11/05/17 15:11 11/05/17 15:11 Discharge - Discharge Clinical Impression: Strep pharyngitis Otitis externa Qualifiers: Otitis externa type: unspecified type Chronicity: acute Laterality: left Qualified Code(s): H60.502 - Unspecified acute noninfective otitis externa, left ear Otitis media Qualifiers: Otitis media type: unspecified Chronicity: acute Qualified Code(s): H66.90 - Otitis media, unspecified, unspecified ear Condition: Good Disposition: HOME, SELF-CARE Instructions: Acetaminophen, Use of Ear Drops ([facility]), Otitis Externa ([facility]), Otitis Media ([facility]) Additional Instructions: You have been given a dose of steroids to help with your throat discomfort. Please continue to take ibuprofen 600 mg every 6 hours or Tylenol 1000 mg every 6 hours as needed for throat discomfort. You can also gargle with salt water. Continue to drink plenty of fluids. Follow-up with your primary care doctor in the next several days. Return if you become unable to swallow, have difficulty breathing, pass out, have persistent vomiting that prevents you from being able to tolerate fluids, or have any other symptoms that are concerning to you. Prescriptions: Neomycin/Polymyxin B Sulf/Hc [Vcvidkqa-Vrjnfxnmv-Iz Ear Soln] 4 drp OT QID 7 Days solution
== END 2017-11-05 18:13 | disposition home or self-care (01) ==
LOC: ER 15:07
DX: J02.0 Streptococcal pharyngitis (principal); H60.502 Unspecified acute noninfective otitis externa, left ear; H66.90 Otitis media, unspecified, unspecified ear; H92.03 Otalgia, bilateral
CPT/HCPCS: 99283; 96372; 96361; 96374; 87070; 87880; 87077; J3490; J0561; J7030; J1100

== ENCOUNTER 2018-05-19 14:43 | Emergency (ER) | payer MEDICAID ==
--- NOTE | 2018-05-19 15:05 | ER Document Report ---
ED Seizure - General Chief Complaint: Probable Seizure Stated Complaint: POSSIBLE SEIZURE Time Seen by Provider: 05/19/18 14:52 - HPI Patient complains to provider of: History of seizures Continued on arrival to ED: No Can details of seizure be obtained/verified: Yes Episode witnessed (by whom): No Character of seizure: Complete loss/conscious Post-ictal symptoms: Confusion, Headache Injuries: Head Notes: Patient is a 27-year-old female that presents to the emergency department for chief complaint of seizure. Patient has history of seizure disorder and states her neurologist became sick and was unable to see patients about 6 months ago. She is in the process of following up with a new neurologist but is unable to see them until after May 31, 2018. Patient is currently out of her Keppra. Her last seizure was reportedly a week ago and she was seen at another emergency room. She was given diazepam for breakthrough seizure by that ER and states she has not had to take it. Today she was at home alone and was starting to walk up the stairs. She reports waking up after being incontinent of urine. She had her left arm in the stairwell railing. She states she did hit her face. She called her on face time who called EMS. Currently patient is complaining of right shoulder pain, a headache, and facial pain. Past Medical History: Seizure disorder Past Surgical History: Negative Social History: Daily tobacco. Frequent marijuana. Denies alcohol. Family History: Reviewed and noncontributory for presenting illness Allergies: Reviewed, see documented allergy list. REVIEW OF SYSTEMS: CONSTITUTIONAL : No fever No chills No diaphoresis No recent illness EENT: Forehead pain No vision changes No congestion No sore throat CARDIOVASCULAR: No chest pain No palpitations RESPIRATORY: No shortness of breath No cough No difficulty breathing GASTROINTESTINAL: No abdominal pain No nausea No vomiting No diarrhea GENITOURINARY: No dysuria No hematuria No difficulty urinating MUSCULOSKELETAL: No back pain No leg pain Right shoulder pain SKIN: No rashes No lesions LYMPHATIC: No swollen, enlarged glands. NEUROLOGICAL: No lightheadedness headache No weakness No paresthesias Seizure PSYCHIATRIC: No anxiety No depression PHYSICAL EXAMINATION: Vital signs reviewed, nursing noted reviewed. GENERAL: Appears postictal and in no acute distress. HEAD: No cephalhematoma. EYES: Eyes appear normal, extraocular movements intact, sclera anicteric, conjunctiva are normal. ENT: Forehead tenderness to palpation with no bony fluctuance. No nasal septal hematoma, nares patent, oropharynx clear without exudates. Moist mucous membranes. NECK: Midline and paraspinal cervical muscle tenderness to palpation, no step- off. Supple without lymphadenopathy LUNGS: Breath sounds clear to auscultation bilaterally and equal. No wheezes rales or rhonchi. HEART: Regular rate and rhythm without murmurs ABDOMEN: Soft, nontender, normoactive bowel sounds. No rebound, guarding, or rigidity. No masses appreciated. EXTREMITIES: Normal left wrist, elbow, and shoulder exam. Tenderness to palpation of right shoulder with normal range of motion and no deformity. No overlying skin changes to right shoulder. no pitting or edema. NEUROLOGICAL: No focal neurological deficits. Moves all extremities spontaneously Motor and sensory grossly intact on exam. PSYCH: Normal mood, normal affect. SKIN: Warm, Dry, normal turgor, superficial abrasion to left arm, forehead ecchymosis with no cephalhematoma - Related Data Allergies/Adverse Reactions: doxycycline [Doxycycline] Allergy (Severe, Verified 09/08/17 19:15) Anaphylaxis metronidazole [From Flagyl] Allergy (Severe, Verified 09/08/17 19:15) Anaphylaxis Metronidazole HCl [From Flagyl] Allergy (Severe, Verified 09/08/17 19:15) Anaphylaxis Sulfa (Sulfonamide Antibiotics) Allergy (Verified 11/05/17 15:09) venom-wasp [Wasp Venom] Allergy (Verified 09/08/17 19:15) Anaphylaxis Past Medical History - Social History Smoking Status: Current Every Day Smoker Family History: Reviewed & Not Pertinent, Other - There is a family history of epilepsy (the father sister) and elevating muscle cramping (the father). - Past Medical History Cardiac Medical History: Reports: Hx Hypertension - preeclampsia Neurological Medical History: Reports: Hx Migraine, Hx Seizures Renal/ Medical History: Denies: Hx Peritoneal Dialysis Musculoskeletal Medical History: Reports Hx Musculoskeletal Deformity, Reports Hx Musculoskeletal Trauma Skin Medical History: Denies Hx MRSA Psychiatric Medical History: Reports: Hx Anxiety, Hx Attention Deficit Hyperactivity Disorder, Hx Depression - Immunizations Immunizations up to date: Yes Hx Diphtheria, Pertussis, Tetanus Vaccination: Yes - 09/12/12 Physical Exam - Vital signs Vitals: Temp Resp BP Pulse Ox 99.0 F 15 131/91 H 100 05/19/18 14:47 05/19/18 14:47 05/19/18 14:47 05/19/18 14:47 Course - Re-evaluation Re-evalutation: 05/19/18 15:12 Vitals reviewed. Nursing notes reviewed. Patient appears postictal but is recalling most of the events of today. She was placed in cervical collar because of her cervical tenderness. CT scan of her head, cervical spine and face will be obtained because of her fall and signs of injury. X-ray of the right shoulder obtained to evaluate for dislocation or fracture. Patient placed in seizure precautions. She was given Keppra IV for her breakthrough seizures. 05/19/18 16:01 Patient reevaluated. Images today are negative for acute injury. Cervical Spine CT 05/19/18 15:00 IMPRESSION: No fracture or static subluxation of the cervical spine. Facial Bones CT 05/19/18 15:00 IMPRESSION: No fracture or dislocation of the facial bones. Head CT 05/19/18 15:00 IMPRESSION: NORMAL BRAIN CT WITHOUT CONTRAST. EVIDENCE OF ACUTE STROKE: NO. Shoulder X-Ray 05/19/18 15:00 IMPRESSION: NEGATIVE STUDY OF THE RIGHT SHOULDER. NO RADIOGRAPHIC EVIDENCE OF ACUTE INJURY. She had complete resolution of her postictal state. She is remained hemodynamically stable. She will be written a prescription for Keppra to begin at home. She was referred to neurology. She states she will continue to try and make an appointment with neurology for follow-up. She will also follow with her primary care provider in the next few days for reevaluation. She was told to return to the emergency room if she has repeat seizure in the next 24 hours or seizure occurring prior to resolution of postictal state. She is in agreement with this plan and stable at discharge. - Vital Signs Vital signs: Temp Pulse Resp BP Pulse Ox 99.0 F 20 135/77 H 100 05/19/18 14:47 05/19/18 15:01 05/19/18 15:01 05/19/18 15:01 - EKG Interpretation by Me Additional EKG results interpreted by me: 05/19/18 15:15 Interpreted by myself 1452: Sinus tachycardia, rate 101, normal axis, no ectopy, no ST elevation Discharge - Discharge Clinical Impression: Seizure disorder Condition: Stable Disposition: HOME, SELF-CARE Instructions: Seizure, Known Epileptic ([facility]) Additional Instructions: Please return to the emergency department if you have any worsening, or concern of your symptoms. Please return to the emergency department if you develop chest pain, difficulty breathing, severe abdominal pain, or ongoing vomiting. Please follow-up with your primary care physician in 2-3 days and any other recommended physicians. If prescribed, take all medications as directed. If you have any questions or concerns do not hesitate to return the emergency department for evaluation. Return to the emergency room if you have another seizure in the next 24 hours or for any new or R worsening symptoms. Please continue to pursue follow-up with neurology Prescriptions: Levetiracetam [Keppra] 500 mg PO BID #30 tablet Referrals: SUMAN DARNELL MD [Primary Care Provider] - Follow up as needed REBECCA HAMILTON MD [NO LOCAL MD] - Follow up in 3-5 days
[2018-05-19] MEDS ORDERED: LEVETIRACETAM 1000 MG/NACL-ISO 1,000 MG/100 ML RTUPB IV SCH (15:30)
--- NOTE | 2018-05-19 15:33 | RADIOLOGY REPORT (SQ) ---
EXAM DESCRIPTION: CT HEAD WITHOUT COMPLETED DATE/TIME: 05/19/2018 3:22 pm REASON FOR STUDY: trauma COMPARISON: 01/02/2016. TECHNIQUE: Axial images acquired through the brain without intravenous contrast. Images reviewed wi th bone, brain and subdural windows. Additional sagittal and coronal reconstructions were generated. Images stored on PACS. All CT scanners at this facility use dose modulation, iterative reconstruction, and/or weight based d osing when appropriate to reduce radiation dose to as low as reasonably achievable (ALARA). [facility]: Dose Right [facility]: CareDose [facility]: Dose Right [facility]: Teradose 4D [facility]: [employer] RADIATION DOSE: CT Rad equipment meets quality standard of care and radiation dose reduction techniq ues were employed. CTDIvol: 53.2 mGy. DLP: 991 mGy-cm. mGy. LIMITATIONS: None. FINDINGS: VENTRICLES: Normal size and contour. CEREBRUM: No masses. No hemorrhage. No midline shift. No evidence for acute infarction. Normal gra y/white matter differentiation. No areas of low density in the white matter. CEREBELLUM: No masses. No hemorrhage. No alteration of density. No evidence for acute infarction. EXTRAAXIAL SPACES: No fluid collections. No masses. ORBITS AND GLOBE: No intra- or extraconal masses. Normal contour of globe without masses. CALVARIUM: No fracture. PARANASAL SINUSES: No fluid or mucosal thickening. SOFT TISSUES: No mass or hematoma. OTHER: No other significant finding. IMPRESSION: NORMAL BRAIN CT WITHOUT CONTRAST. EVIDENCE OF ACUTE STROKE: NO. COMMENT: Quality ID # [id number]: Final reports with documentation of one or more dose reduction techniques (e.g., Automated exposure control, adjustment of the mA and/or kV according to patient size, use of iterative reconstruction technique) TECHNICAL DOCUMENTATION: JOB ID: [id number] 2018 [employer]- All Rights Reserved Reading location - IP/workstation name: [email or web address]
--- NOTE | 2018-05-19 15:33 | RADIOLOGY REPORT (SQ) ---
EXAM DESCRIPTION: CT CERVICAL SPINE WITHOUT COMPLETED DATE/TIME: 05/19/2018 3:22 pm REASON FOR STUDY: trauma COMPARISON: None. TECHNIQUE: Axial images acquired through the cervical spine without intravenous contrast. Images re viewed with lung, soft tissue and bone windows. Reconstructed coronal and sagittal MPR images review ed. Images stored on PACS. All CT scanners at this facility use dose modulation, iterative reconstruction, and/or weight based d osing when appropriate to reduce radiation dose to as low as reasonably achievable (ALARA). [facility]: Dose Right [facility]: CareDose [facility]: Dose Right [facility]: Teradose 4D [facility]: [employer] RADIATION DOSE: CT Rad equipment meets quality standard of care and radiation dose reduction techniq ues were employed. CTDIvol: 15.7 mGy. DLP: 314 mGy-cm. mGy. LIMITATIONS: None. FINDINGS: ALIGNMENT: Anatomic. MINERALIZATION: Normal. VERTEBRAL BODIES: No fractures or dislocation. DISCS: No significant disc disease. FACETS, LATERAL MASSES, POSTERIOR ELEMENTS: No fractures. No dislocation. No acute findings. HARDWARE: None in the spine. VISUALIZED RIBS: No fractures. LUNG APICES AND SOFT TISSUES: No significant or acute findings. OTHER: No other significant finding. IMPRESSION: No fracture or static subluxation of the cervical spine. TECHNICAL DOCUMENTATION: JOB ID: [id number] Quality ID # [id number]: Final reports with documentation of one or more dose reduction techniques (e.g., Au tomated exposure control, adjustment of the mA and/or kV according to patient size, use of iterative reconstruction technique) 2010 [employer]- All Rights Reserved Reading location - IP/workstation name: [email or web address]
--- NOTE | 2018-05-19 15:35 | RADIOLOGY REPORT (SQ) ---
EXAM DESCRIPTION: CT FACIAL AREA WITHOUT COMPLETED DATE/TIME: 05/19/2018 3:22 pm REASON FOR STUDY: trauma COMPARISON: None. TECHNIQUE: Noncontrasted images through the facial bones and orbits windowed for bone and soft tissu e. Additional coronal and sagittal reconstructed images reviewed. All images stored on PACS. All CT scanners at this facility use dose modulation, iterative reconstruction, and/or weight based d osing when appropriate to reduce radiation dose to as low as reasonably achievable (ALARA). [facility]: Dose Right [facility]: CareDose [facility]: Dose Right [facility]: Teradose 4D [facility]: [employer] RADIATION DOSE: CT Rad equipment meets quality standard of care and radiation dose reduction techniq ues were employed. CTDIvol: 30.4 mGy. DLP: 477 mGy-cm. mGy. LIMITATIONS: None. FINDINGS: FACIAL BONES: No fracture or bone lesion. ORBITS: Intact. No fracture. Symmetric intact globes and retroorbital soft tissues. PARANASAL SINUSES: Clear. No significant mucosal thickening, mass or fluid. No nasal polyps. Maxill arnol sinus outlets are patent. SOFT TISSUES: No mass or edema. INFERIOR BRAIN: Limited view. No acute findings. OTHER: No other significant finding. IMPRESSION: No fracture or dislocation of the facial bones. TECHNICAL DOCUMENTATION: JOB ID: [id number] Quality ID # [id number]: Final reports with documentation of one or more dose reduction techniques (e.g., Au tomated exposure control, adjustment of the mA and/or kV according to patient size, use of iterative reconstruction technique) 2010 [email or web address]- All Rights Reserved Reading location - IP/workstation name: [email or web address]
--- NOTE | 2018-05-19 15:47 | RADIOLOGY REPORT (SQ) ---
EXAM DESCRIPTION: SHOULDER RIGHT 2 OR MORE VIEWS COMPLETED DATE/TIME: 05/19/2018 3:33 pm REASON FOR STUDY: trauma COMPARISON: None. NUMBER OF VIEWS: Three views. TECHNIQUE: Internal rotation, external rotation, and Y view images acquired of the right shoulder. LIMITATIONS: None. FINDINGS: MINERALIZATION: Normal. BONES: No acute fracture or dislocation. No worrisome bone lesions. JOINTS: No dislocation. VISUALIZED LUNGS AND RIBS: No pneumothorax. No rib fracture. SOFT TISSUES: No radiopaque foreign body. OTHER: No other significant finding. IMPRESSION: NEGATIVE STUDY OF THE RIGHT SHOULDER. NO RADIOGRAPHIC EVIDENCE OF ACUTE INJURY. TECHNICAL DOCUMENTATION: JOB ID: [id number] [employer]- All Rights Reserved Reading location - IP/workstation name: [email or web address]
[2018-05-19 16:33] VITALS: BP 122/73
--- NOTE | 2018-05-19 18:18 | EKG REPORT ---
SEVERITY:- OTHERWISE NORMAL ECG - SINUS TACHYCARDIA : Confirmed by: Ermias Parker MD 19-May-2018 18:17:36
== END 2018-05-19 16:36 | disposition home or self-care (01) ==
LOC: ER 14:43
DX: G40.909 Epilepsy, unspecified, not intractable, without status epilepticus (principal); F17.200 Nicotine dependence, unspecified, uncomplicated; Z88.2 Allergy status to sulfonamides
CPT/HCPCS: 93005; 99285; 96365; 73030; 70450; 70486; 72125; 93010; J1953

== ENCOUNTER 2018-06-12 23:57 | Emergency (ER) | payer MEDICAID ==
[2018-06-13] MEDS ORDERED: KETOROLAC TROMETHAMINE INJ/PF 30 MG/1 ML SDV IV ONE (00:26)
[2018-06-13] MEDS ORDERED: NORMAL SALINE 1000 ML 1,000 ML IV ONE (00:26)
--- NOTE | 2018-06-13 00:32 | ER Document Report ---
ED General - General Chief Complaint: Breathing Difficulty Stated Complaint: POSSIBLE FEVER Time Seen by Provider: 06/13/18 00:19 Notes: Patient is a 27-year-old female that comes to the emergency department for chief complaint of 2 weeks of sick symptoms including cough, some mild congestion, she also states that she has been having fevers and chills for the past 2 days. She denies nausea, vomiting. She reports persistent cough but denies difficulty breathing when she is not coughing. She denies smoking, asthma, or any pulmonary history. She states she just completed a course of amoxicillin that she was placed on by her primary care provider. Past medical history of seizures, anxiety/depression, medicated for both. LMP within the past month. She has not had the influenza vaccine. TRAVEL OUTSIDE OF THE [place] IN LAST 30 DAYS: No - Related Data Allergies/Adverse Reactions: doxycycline [Doxycycline] Allergy (Severe, Verified 09/08/17 19:15) Anaphylaxis metronidazole [From Flagyl] Allergy (Severe, Verified 09/08/17 19:15) Anaphylaxis Metronidazole HCl [From Flagyl] Allergy (Severe, Verified 09/08/17 19:15) Anaphylaxis Sulfa (Sulfonamide Antibiotics) Allergy (Verified 11/05/17 15:09) venom-wasp [Wasp Venom] Allergy (Verified 09/08/17 19:15) Anaphylaxis Past Medical History - General Information source: Patient - Social History Smoking Status: Never Smoker Drug Abuse: None Lives with: Family Family History: Reviewed & Not Pertinent, Other - There is a family history of epilepsy (the father sister) and elevating muscle cramping (the father). - Past Medical History Cardiac Medical History: Reports: Hx Hypertension - preeclampsia Neurological Medical History: Reports: Hx Migraine, Hx Seizures Renal/ Medical History: Denies: Hx Peritoneal Dialysis Musculoskeletal Medical History: Reports Hx Musculoskeletal Deformity, Reports Hx Musculoskeletal Trauma Skin Medical History: Denies Hx MRSA Psychiatric Medical History: Reports: Hx Anxiety, Hx Attention Deficit Hyperactivity Disorder, Hx Depression Surgical Hx: Negative - Immunizations Immunizations up to date: Yes Hx Diphtheria, Pertussis, Tetanus Vaccination: Yes - 09/12/12 Review of Systems - Review of Systems Constitutional: See HPI EENT: See HPI Cardiovascular: No symptoms reported Respiratory: See HPI Gastrointestinal: No symptoms reported Genitourinary: No symptoms reported Female Genitourinary: No symptoms reported Musculoskeletal: No symptoms reported Skin: No symptoms reported Hematologic/Lymphatic: No symptoms reported Neurological/Psychological: No symptoms reported Physical Exam - Vital signs Vitals: Temp Pulse Resp BP Pulse Ox 99.2 F 138 H 16 121/77 98 06/13/18 00:04 06/13/18 00:04 06/13/18 00:04 06/13/18 00:04 06/13/18 00:04 - Notes Notes: GENERAL: Slightly disheveled and unwell appearing, no distress, alert and responsive HEAD: Normocephalic, atraumatic. EYES: Pupils equal, round, and reactive to light. Extraocular movements intact. ENT: Oral mucosa dry, tongue midline. Oropharynx unremarkable. Airway patent. Minimal nasal congestion. no nasal septal hematoma, TM's intact. NECK: Full range of motion. Supple. Trachea midline. LUNGS: Clear to auscultation bilaterally, no wheezes, rales, or rhonchi. No respiratory distress. A few coarse breath sounds bilaterally, frequent nonproductive cough, no wheezing, tachypnea, or respiratory distress. HEART: Tachycardia, normal rhythm, no murmur. ABDOMEN: Soft, non-tender. Non-distended. Bowel sounds present in all 4 quadrants. GENITOURINARY: Deferred EXTREMITIES: Moves all 4 extremities spontaneously. No edema, normal radial and dorsalis pedis pulses bilaterally. No cyanosis. BACK: no cervical, thoracic, lumbar midline tenderness. No saddle anesthesia, normal distal neurovascular exam. NEUROLOGICAL: Alert and oriented x3. Normal speech. [cranial nerves II through XII grossly intact]. PSYCH: Normal affect, normal mood. SKIN: Warm, dry, normal turgor. No rashes or lesions noted. Course - Re-evaluation Re-evalutation: Patient tachycardic, frequent nonproductive cough, mildly ill-appearing on evaluation. Lungs are clear. No hypoxia. No respiratory distress. Chest x-ray shows left lower lobe pneumonia. This is consistent with patient's worsening symptoms and developing fevers. CBC shows mild leukocytosis and elevation of neutrophils. Chemistry unremarkable. test is negative. Influenza A is positive as well. Possible influenza pneumonia although based on patient's evaluation I have a stronger suspicion of bacterial pneumonia with leukocytosis and left shift, initial viral upper respiratory infection, I suspect concurrent influenza infection. I discussed with patient in detail. She does not have a smoking or asthma history, after IV fluids her tachycardia resolved, she is not hypoxic or in any respiratory distress. She declines Tamiflu after discussion and after it was offered. Decision was made to proceed with treatment of suspected bacterial pneumonia, I provided her with work- release, discussed symptom management and expectations, discussed close follow- up and return precautions in detail. Patient states satisfaction and agreement with plan. She is allergic to doxycycline, therefore after discussion of options along with recent amoxicillin use she was placed on levofloxacin instead. Stable at time of discharge. - Vital Signs Vital signs: Temp Pulse Resp BP Pulse Ox 99.2 F 98 20 112/70 100 06/13/18 00:04 06/13/18 02:43 06/13/18 02:43 06/13/18 02:43 06/13/18 02:43 - Laboratory Result Diagrams: 06/13/18 00:48 06/13/18 00:48 Laboratory results interpreted by me: 06/13/18 06/13/18 00:48 00:48 WBC 12.6 H Absolute Neutrophils 9.0 H Sodium 136.1 L Glucose 113 H Discharge - Discharge Clinical Impression: Influenza A, Chills, Cough Pneumonia Qualifiers: Pneumonia type: due to unspecified organism Laterality: left Lung location: lower lobe of lung Qualified Code(s): J18.1 - Lobar pneumonia, unspecified organism Condition: Stable Disposition: HOME, SELF-CARE Additional Instructions: Your workup indicates both influenza a infection and a for the possibility of a bacterial pneumonia because your blood counts do indicate this. Your chest x-ray does show a pneumonia. Take Levaquin antibiotic as prescribed to completion. Take Tessalon if needed for cough. Drink plenty fluids and rest. Take Tylenol or ibuprofen for fever/chills, you can take up to 1000 mg of Tylenol or 600 mg of ibuprofen every 6 hours (you can take these at the same time if needed). Follow-up with primary care. Return if you worsen including difficulty breathing, vomiting, passing out, or any other concerning or worsening symptoms. Prescriptions: Benzonatate [Tessalon Perle 100 mg Capsule] 100 mg PO Q8HP PRN #20 cap PRN Reason: Levofloxacin [Levaquin 750 mg Tablet] 750 mg PO DAILY #4 tablet Forms: Return to Work Referrals: SUMAN DARNELL MD [Primary Care Provider] - Follow up as needed
--- NOTE | 2018-06-13 01:03 | RADIOLOGY REPORT (SQ) ---
EXAM DESCRIPTION: XR CHEST 2 VIEWS COMPLETED DATE/TME: 06/13/2018 00:26 CLINICAL HISTORY: 27 years, Female, fevers, worsening cough x 2 weeks COMPARISON: 03/04/2017 chest NUMBER OF VIEWS: 2 TECHNIQUE: Frontal and lateral views of the chest LIMITATIONS: None. FINDINGS: The heart size is normal. There is some equivocal left basilar infiltrate. No pneumothorax. Lungs are otherwise clear. IMPRESSION: Equivocal left basilar infiltrate. Follow-up recommended. copyright 2010 [employer]- All Rights Reserved
[2018-06-13] MEDS ORDERED: LEVOFLOXACIN 750 MG TABLET PO ONE (01:17)
[2018-06-13 01:19] LABS: A TYPE INFLUENZA AG POSITIVE (NEGATIVE); B INFLUENZA AG NEGATIVE (NEGATIVE)
[2018-06-13] MEDS ORDERED: LIDOCAINE 2% INJ-PF (20 MG/ML) 10 ML AMPUL NEB ONE (01:53)
[2018-06-13 02:03] LABS: ABSOLUTE EOSINOPHILS # (AUTO) 0.3 10^3/uL (0.0-0.6); ABSOLUTE LYMPHOCYTES (AUTO) 2.4 10^3/uL (0.5-4.7); ABSOLUTE MONOCYTES (AUTO) 0.8 10^3/uL (0.1-1.4); BASOPHILS % (AUTO) 0.3 % (0-2); HEMATOCRIT 39.7 % (36.0-47.0); HEMOGLOBIN 13.3 g/dL (12.0-15.5); LYMPHOCYTES % (AUTO) 19.2 % (13-45); MEAN CORPUSCULAR HEMOGLOBIN 29.7 pg (27.0-33.4); MEAN CORPUSCULAR HGB CONC 33.4 g/dL (32.0-36.0); MEAN CORPUSCULAR VOLUME 89 fl (80-97); MONOCYTES % (AUTO) 6.6 % (3-13); PLATELET COUNT 274 10^3/uL (150-450); RED BLOOD COUNT 4.47 10^6/uL (3.72-5.28); RED CELL DISTRIBUTION WIDTH 13.6 % (11.5-14.0); SEGMENTED NEUTROPHILS % (AUTO) 71.9 % (42-78); TOTAL CELLS COUNTED % (AUTO) 100 %; WHITE BLOOD COUNT 12.6 10^3/uL (4.0-10.5)
[2018-06-13 02:15] LABS: ANION GAP 7 (5-19); BLOOD UREA NITROGEN 11 mg/dL (7-20); CALCIUM 9.2 mg/dL (8.4-10.2); CARBON DIOXIDE 25 mmol/L (22-30); CHLORIDE 104 mmol/L (98-107); GLUCOSE 113 mg/dL (75-110); POTASSIUM 4.2 mmol/L (3.6-5.0); SODIUM 136.1 mmol/L (137-145)
[2018-06-13 02:47] VITALS: BP 112/70
== END 2018-06-13 02:49 | disposition home or self-care (01) ==
LOC: ER 23:57
DX: J10.08 Influenza due to other identified influenza virus with other specified pneumonia (principal); J18.1 Lobar pneumonia, unspecified organism; R05 Cough; R50.9 Fever, unspecified; R09.81 Nasal congestion; R56.9 Unspecified convulsions; F41.9 Anxiety disorder, unspecified; F32.9 Major depressive disorder, single episode, unspecified; Z79.899 Other long term (current) drug therapy; Z87.892 Personal history of anaphylaxis; Z88.1 Allergy status to other antibiotic agents; Z88.2 Allergy status to sulfonamides; Z91.038 Other insect allergy status
CPT/HCPCS: 94640; 99283; 96361; 96374; 36415; 87040; 84703; 85025; 80048; 87804; 71046; J1885; J7030; J3490 ×2

== ENCOUNTER 2018-12-15 20:24 | Emergency (ER) | payer MEDICAID ==
--- NOTE | 2018-12-15 23:46 | ER Document Report ---
HPI - HPI Time Seen by Provider: 12/15/18 23:06 Pain Level: 1 Context: Patient is a 28-year-old female who presents in the emergency department with a chief complaint of right ear pain. She states that she received a piercing in her right ear, but noticed that she ended up having some swelling to that area. She does have tenderness more at the mastoid process. Denies any past medical history. Patient also states that she does have some burning upon urination. Denies abdominal pain. Denies nausea, vomiting, or diarrhea. Denies any sinus pressure. Denies any fever. - ROS Notes: REVIEW OF SYSTEMS: CONSTITUTIONAL : Denies recent illness. Denies recent unintentional weight loss. Denies fever, chills, or sweats. EENT: See HPI CARDIOVASCULAR: Denies chest pain. RESPIRATORY: Denies shortness of breath, cough, congestion, difficulty breathing, or wheezing. GASTROINTESTINAL: Denies nausea, vomiting, and diarrhea. Denies abdominal pain. Denies constipation. GENITOURINARY: See HPI MUSCULOSKELETAL: Denies neck and back pain. Denies joint pain or swelling. SKIN: Denies rash, itchiness, or lesions HEMATOLOGIC : Denies easy bruising or bleeding. LYMPHATIC: Denies swollen, painful, enlarged glands. NEUROLOGICAL: Denies no numbness or tingling denies weakness. Denies headache. Denies altered mental status. Denies alteration in speech. PSYCHIATRIC: Denies stress, anxiety, alteration in sleep patterns, or depression. All other systems reviewed and negative. - REPRODUCTIVE Reproductive: DENIES: : Past Medical History - General Information source: Patient - Social History Smoking Status: Unknown if Ever Smoked Family History: Reviewed & Not Pertinent, Other - There is a family history of epilepsy (the father sister) and elevating muscle cramping (the father). - Past Medical History Cardiac Medical History: Reports: Hx Hypertension - preeclampsia Neurological Medical History: Reports: Hx Migraine, Hx Seizures Renal/ Medical History: Denies: Hx Peritoneal Dialysis Musculoskeletal Medical History: Reports Hx Musculoskeletal Deformity, Reports Hx Musculoskeletal Trauma Skin Medical History: Denies Hx MRSA Psychiatric Medical History: Reports: Hx Anxiety, Hx Attention Deficit Hyperactivity Disorder, Hx Depression - Immunizations Immunizations up to date: Yes Hx Diphtheria, Pertussis, Tetanus Vaccination: Yes - 09/12/12 Vertical Provider Document - CONSTITUTIONAL Agree With Documented VS: Yes Exam Limitations: No Limitations General Appearance: No Apparent Distress - INFECTION CONTROL TRAVEL OUTSIDE OF THE [place] IN LAST 30 DAYS: No - HEENT HEENT: Atraumatic. negative: Pharyngeal Exudate, Pharyngeal Tenderness, Pharyngeal Erythema, Tympanic Membrane Red, Tympanic Membrane Bulging Notes: Tenderness at mastoid process. Edema and erythema noted to the right external ear and area of "migraine piercing." - NECK Neck: Normal Inspection - RESPIRATORY Respiratory: No Respiratory Distress - CARDIOVASCULAR Cardiovascular: Regular Rate Pulses: Normal: Radial - MUSCULOSKELETAL/EXTREMETIES Musculoskeletal/Extremeties: FROM - NEURO Level of Consciousness: Awake, Alert, Appropriate Motor/Sensory: No Motor Deficit, No Sensory Deficit - DERM Integumentary: Warm, Dry Course - Re-evaluation Re-evalutation: 12/15/18 23:45 Patient has tenderness noted to her right mastoid process. I am concerned for possible mastoiditis. The patient will be for a CT of the facial bones to evaluate mastoiditis. No otitis media or otitis externa noted. The piercing is on the inner aspect of her ear and she states that it is a "migraine piercing." There is some erythema noted and looks like dried purulent drainage. I do not appreciate any fluctuance. 12/16/18 02:[address] does not show any mastoiditis. Patient will be sent home on clindamycin since she is allergic to sulfa drugs. Would like to cover possible MRSA. The clindamycin will also cover her urinary tract infection. Follow-up precautions were given. Verbal discharge instructions were given to the patient. They verbalized understanding. They are stable for discharge. - Vital Signs Vital signs: Temp Pulse Resp BP Pulse Ox 98.1 F 104 H 15 118/79 99 12/15/18 20:52 12/15/18 20:52 12/15/18 20:52 12/15/18 20:52 12/15/18 20:52 Discharge - Discharge Clinical Impression: Right ear pain Cellulitis Qualifiers: Site of cellulitis: other site Qualified Code(s): L03.818 - Cellulitis of other sites Condition: Stable Disposition: HOME, SELF-CARE Additional Instructions: You was seen today in the emergency department for right ear pain. You are being treated for cellulitis and for a possible abscess that may have developed. Your CT was normal. Please follow-up with your primary care provider in regards to this visit. If your symptoms are getting worse in the next 3 to 5 days, please return to the emerge department. Prescriptions: Clindamycin HCl [Cleocin 150 mg Capsule] 300 mg PO Q6 7 Days #56 capsule Referrals: SUMAN DARNELL MD [Primary Care Provider] - Follow up as needed
[2018-12-16 00:47] LABS: APPEARANCE,URINE SLIGHTLY-CLOUDY; BILIRUBIN,URINE NEGATIVE (NEGATIVE); COLOR,URINE AMBER; GLUCOSE, URINE NEGATIVE (NEGATIVE); KETONES,URINE NEGATIVE (NEGATIVE); LEUKOCYTE ESTERASE,URINE MODERATE (NEGATIVE); NITRITE,URINE POSITIVE (NEGATIVE); PROTEIN,URINE NEGATIVE (NEGATIVE); URINE SPECIFIC GRAVITY 1.013; UROBILINOGEN,URINE NEGATIVE mg/dL (<2.0)
--- NOTE | 2018-12-16 02:37 | RADIOLOGY REPORT (SQ) ---
EXAM DESCRIPTION: CT ORBITS WITHOUT IV CONTRAST COMPLETED DATE/TME: 12/15/2018 23:37 CLINICAL HISTORY: 28 years, Female, eval mastoiditis?; R ear pain COMPARISON: None. TECHNIQUE: Axial CT images of the orbits were obtained without contrast. Sagittal and coronal reformats were performed. DLP 347 Images stored on PACS. All CT scanners at this facility use dose modulation, iterative reconstruction, and/or weight based dosing when appropriate to reduce radiation dose to as low as reasonably achievable (ALARA). [facility]: Dose Right [facility]: CareDose [facility]: Dose Right [facility]: Teradose 4D [facility]: Smart WeDuc LIMITATIONS: None. FINDINGS: No focal areas of soft tissue swelling. The globes are intact. No retro-orbital hematoma. The orbits are intact. The paranasal sinuses and mastoid air cells are clear. The bilateral external auditory canals appear normal. The bilateral middle ears appear unremarkable. The nasal bones are intact. The zygomatic arches are intact. The visualized portions of the mandible and maxilla appear intact. IMPRESSION: No acute findings. No evidence of mastoiditis. TECHNICAL DOCUMENTATION: Quality ID # [id number]: Final reports with documentation of one or more dose reduction techniques (e.g., Automated exposure control, adjustment of the mA and/or kV according to patient size, use of iterative reconstruction technique) copyright 2011 [employer]- All Rights Reserved
[2018-12-16] MEDS ORDERED: CLINDAMYCIN HCL 150 MG CAPSULE PO ONE (02:50)
[2018-12-16 03:20] VITALS: BP 123/82
== END 2018-12-16 03:19 | disposition home or self-care (01) ==
LOC: ER 20:24
DX: L03.818 Cellulitis of other sites (principal); H92.01 Otalgia, right ear; R30.9 Painful micturition, unspecified; I10 Essential (primary) hypertension
CPT/HCPCS: 99283; 87086; 87088; 81001; 87186; 70480; J3490

== ENCOUNTER 2019-02-17 18:52 | Emergency (ER) | payer SELFPAY ==
--- NOTE | 2019-02-17 19:16 | ER Document Report ---
ED Medical Screen (RME) - General Chief Complaint: High Blood Sugar Stated Complaint: DIFFICULTY URINATING Time Seen by Provider: 02/17/19 19:04 Primary Care Provider: SUMAN DARNELL MD [Primary Care Provider] - Follow up as needed Mode of Arrival: Ambulatory Information source: Patient Notes: 28-year-old female presents with the emergency department with complaints of bilateral flank pain right worse than left. She also reports she has not been able to void since yesterday. Patient denies fever vomiting diarrhea. Father reports that she has been in bed for a month. She reports she is really tired wiped out. Denies history of depression. Father checked patient's sugar yesterday and it said that was high but his strips are probably old he reports. He reports patient has a history of some type of seizures. She is very disheveled I have greeted and performed a rapid initial assessment of this patient. A comprehensive ED assessment and evaluation of the patient, analysis of test results and completion of the medical decision making process will be conducted by additional ED providers. Dictation of this chart was performed using voice recognition software; therefore, there may be some unintended grammatical errors. TRAVEL OUTSIDE OF THE [place] IN LAST 30 DAYS: No - Related Data Allergies/Adverse Reactions: doxycycline [Doxycycline] Allergy (Severe, Verified 02/17/19 18:56) Anaphylaxis metronidazole [From Flagyl] Allergy (Severe, Verified 02/17/19 18:56) Anaphylaxis Metronidazole HCl [From Flagyl] Allergy (Severe, Verified 02/17/19 18:56) Anaphylaxis Sulfa (Sulfonamide Antibiotics) Allergy (Verified 02/17/19 18:56) venom-wasp [Wasp Venom] Allergy (Verified 02/17/19 18:56) Anaphylaxis Past Medical History - Past Medical History Cardiac Medical History: Reports: Hx Hypertension - preeclampsia Neurological Medical History: Reports: Hx Migraine, Hx Seizures Renal/ Medical History: Denies: Hx Peritoneal Dialysis Musculoskeltal Medical History: Reports Hx Musculoskeletal Deformity, Reports Hx Musculoskeletal Trauma Skin Medical History: Denies Hx MRSA Psychiatric Medical History: Reports: Hx Anxiety, Hx Attention Deficit Hyperactivity Disorder, Hx Depression - Immunizations Immunizations up to date: Yes Hx Diphtheria, Pertussis, Tetanus Vaccination: Yes - 09/12/12 Physical Exam - Vital signs Vitals: Temp Pulse Resp BP Pulse Ox 98.2 F 104 H 18 127/92 H 100 02/17/19 18:55 02/17/19 18:55 02/17/19 18:55 02/17/19 18:55 02/17/19 18:55 Course - Vital Signs Vital signs: Temp Pulse Resp BP Pulse Ox 98.2 F 104 H 18 127/92 H 100 02/17/19 18:55 02/17/19 18:55 02/17/19 18:55 02/17/19 18:55 02/17/19 18:55 Doctor's Discharge - Discharge Referrals: SUMAN DARNELL MD [Primary Care Provider] - Follow up as needed
[2019-02-17 19:54] LABS: ABSOLUTE BASOPHILS # (AUTO) 0.1 10^3/uL (0.0-0.2); ABSOLUTE EOSINOPHILS # (AUTO) 0.4 10^3/uL (0.0-0.6); ABSOLUTE LYMPHOCYTES (AUTO) 2.7 10^3/uL (0.5-4.7); ABSOLUTE MONOCYTES (AUTO) 0.6 10^3/uL (0.1-1.4); ABSOLUTE NEUT (AUTO) 6.7 10^3/uL (1.7-8.2); EOSINOPHILS % (AUTO) 4.2 % (0-6); HEMATOCRIT 44.3 % (36.0-47.0); HEMOGLOBIN 14.9 g/dL (12.0-15.5); LYMPHOCYTES % (AUTO) 25.6 % (13-45); MEAN CORPUSCULAR HGB CONC 33.6 g/dL (32.0-36.0); MEAN CORPUSCULAR VOLUME 86 fl (80-97); MONOCYTES % (AUTO) 5.7 % (3-13); PLATELET COUNT 304 10^3/uL (150-450); RED BLOOD COUNT 5.13 10^6/uL (3.72-5.28); RED CELL DISTRIBUTION WIDTH 14.1 % (11.5-14.0); SEGMENTED NEUTROPHILS % (AUTO) 63.5 % (42-78); TOTAL CELLS COUNTED % (AUTO) 100 %; WHITE BLOOD COUNT 10.6 10^3/uL (4.0-10.5)
[2019-02-17 20:02] LABS: APPEARANCE,URINE CLEAR; BILIRUBIN,URINE NEGATIVE (NEGATIVE); COLOR,URINE YELLOW; GLUCOSE, URINE NEGATIVE (NEGATIVE); KETONES,URINE NEGATIVE (NEGATIVE); LEUKOCYTE ESTERASE,URINE SMALL (NEGATIVE); NITRITE,URINE POSITIVE (NEGATIVE); PROTEIN,URINE NEGATIVE (NEGATIVE); URINE SPECIFIC GRAVITY 1.019; UROBILINOGEN,URINE NEGATIVE mg/dL (<2.0)
[2019-02-17 20:10] LABS: ALBUMIN 3.9 g/dL (3.5-5.0); ALKALINE PHOSPHATASE 39 U/L (38-126); ANION GAP 8 (5-19); ASPARTATE AMINO TRANSFERASE 15 U/L (14-36); BILIRUBIN,DIRECT 0.1 mg/dL (0.0-0.4); BILIRUBIN,TOTAL 0.3 mg/dL (0.2-1.3); BLOOD UREA NITROGEN 11 mg/dL (7-20); CALCIUM 9.3 mg/dL (8.4-10.2); CARBON DIOXIDE 28 mmol/L (22-30); CHLORIDE 104 mmol/L (98-107); GLUCOSE 82 mg/dL (75-110); TOTAL PROTEIN 6.8 g/dL (6.3-8.2)
[2019-02-17 20:15] LABS: URINE AMPHETAMINES SCREEN UNCONFIRMED POSITIVE; URINE BARBITURATES SCREEN NEGATIVE; URINE BENZODIAZEPINES SCREEN UNCONFIRMED POSITIVE; URINE COCAINE SCREEN NEGATIVE; URINE MARIJUANA (THC) SCREEN UNCONFIRMED POSITIVE; URINE METHADONE SCREEN NEGATIVE; URINE PHENCYCLIDINE SCREEN NEGATIVE
[2019-02-17] MEDS ORDERED: NITROFURANTOIN MONOHYD/M-CRYST 100 MG CAPSULE PO ONE (21:42)
--- NOTE | 2019-02-17 21:45 | ER Document Report ---
ED General - General Chief Complaint: High Blood Sugar Stated Complaint: DIFFICULTY URINATING Time Seen by Provider: 02/17/19 19:04 Primary Care Provider: SUMAN DARNELL MD [Primary Care Provider] - Follow up in 1 week Mode of Arrival: Ambulatory Notes: 28-year-old female presents with the emergency department with complaints of bilateral flank pain right worse than left. She also reports she has not been able to void since yesterday. Patient denies fever vomiting diarrhea. Father reports that she has been in bed for a month. She reports she is really tired wiped out. Denies history of depression. Father checked patient's sugar yesterday and it said that was high but his strips are probably old he reports. He reports patient has a history of some type of seizures. She is very disheveled TRAVEL OUTSIDE OF THE [place] IN LAST 30 DAYS: No - HPI Onset: Other Onset/Duration: Persistent Quality of pain: Achy Severity: Moderate Pain Level: 4 Associated symptoms: None Exacerbated by: Denies Relieved by: Denies Similar symptoms previously: No Recently seen / treated by doctor: No - Related Data Allergies/Adverse Reactions: doxycycline [Doxycycline] Allergy (Severe, Verified 02/17/19 18:56) Anaphylaxis metronidazole [From Flagyl] Allergy (Severe, Verified 02/17/19 18:56) Anaphylaxis Metronidazole HCl [From Flagyl] Allergy (Severe, Verified 02/17/19 18:56) Anaphylaxis Sulfa (Sulfonamide Antibiotics) Allergy (Verified 02/17/19 18:56) venom-wasp [Wasp Venom] Allergy (Verified 02/17/19 18:56) Anaphylaxis Past Medical History - General Information source: Patient - Social History Smoking Status: Current Every Day Smoker Cigarette use (# per day): Yes Frequency of alcohol use: None Drug Abuse: Marijuana Occupation: None Lives with: Family Family History: Reviewed & Not Pertinent, Other - There is a family history of epilepsy (the father sister) and elevating muscle cramping (the father). Patient has suicidal ideation: No Patient has homicidal ideation: No - Past Medical History Cardiac Medical History: Reports: Hx Hypertension - preeclampsia Neurological Medical History: Reports: Hx Migraine, Hx Seizures Renal/ Medical History: Denies: Hx Peritoneal Dialysis Musculoskeletal Medical History: Reports Hx Musculoskeletal Deformity, Reports Hx Musculoskeletal Trauma Skin Medical History: Denies Hx MRSA Psychiatric Medical History: Reports: Hx Anxiety, Hx Attention Deficit Hyperactivity Disorder, Hx Depression Surgical Hx: Negative - Immunizations Immunizations up to date: Yes Hx Diphtheria, Pertussis, Tetanus Vaccination: Yes - 09/12/12 Review of Systems - Review of Systems Notes: Review HPI for review of systems., All other systems negative Physical Exam - Vital signs Vitals: Temp Pulse Resp BP Pulse Ox 98.2 F 104 H 18 127/92 H 100 02/17/19 18:55 02/17/19 18:55 02/17/19 18:55 02/17/19 18:55 02/17/19 18:55 - General General appearance: Alert In distress: None - HEENT Head: Normocephalic, Atraumatic Eyes: Normal Conjunctiva: Normal Extraocular movements intact: Yes Ears: Normal External canal: Normal Tympanic membrane: Normal Nasal: Normal Mouth/Lips: Normal Mucous membranes: Moist Pharynx: Normal. No: Erythema, Exudate Neck: Normal, Supple. No: Lymphadenopathy - Respiratory Respiratory status: No respiratory distress Chest status: Nontender Breath sounds: Normal Chest palpation: Normal - Cardiovascular Rhythm: Regular Heart sounds: Normal auscultation Murmur: No - Abdominal Inspection: Normal Distension: No distension Tenderness: Nontender Organomegaly: No organomegaly - Back Back: Normal, CVA tenderness. No: Vertebra tenderness - Extremities General upper extremity: Normal ROM, Normal strength General lower extremity: Normal ROM, Normal strength - Neurological Neuro grossly intact: Yes Cognition: Normal Orientation: AAOx4 Judy Coma Scale Eye Opening: Spontaneous [place] Coma Scale Verbal: Oriented Judy Coma Scale Motor: Obeys Commands [place] Coma Scale Total: 15 Speech: Normal - Psychological Associated symptoms: Normal affect, Normal mood - Skin Skin Temperature: Warm Skin Moisture: Dry Skin Color: Normal Course - Re-evaluation Re-evalutation: 02/17/19 21:54 28-year-old female presents with the emergency department with complaints of bilateral flank pain right worse than left. She also reports she has not been able to void since yesterday. Patient denies fever vomiting diarrhea. Father reports that she has been in bed for a month. Patient positive for UTI, slight leukocytosis. Patient instructed on Macrobid. Patient instructed on the importance of pushing fluids. She was also instructed to follow-up with her primary care provider in [place] for recheck within 1 week. She verbalized understanding to all instructions. 02/17/19 19:40 02/17/19 19:40 MCV 86 fl (80-97) 02/17/19 19:40 MCH 29.0 pg (27.0-33.4) 02/17/19 19:40 MCHC 33.6 g/dL (32.0-36.0) 02/17/19 19:40 RDW 14.1 % (11.5-14.0) H 02/17/19 19:40 Seg Neutrophils % 63.5 % (42-78) 02/17/19 19:40 Chloride 104 mmol/L (98-107) 02/17/19 19:40 Carbon Dioxide 28 mmol/L (22-30) 02/17/19 19:40 Anion Gap 8 (5-19) 02/17/19 19:40 Est GFR ( Amer) > 60 (>60) 02/17/19 19:40 Glucose 82 mg/dL (75-110) 02/17/19 19:40 Calcium 9.3 mg/dL (8.4-10.2) 02/17/19 19:40 Total Bilirubin 0.3 mg/dL (0.2-1.3) 02/17/19 19:40 AST 15 U/L (14-36) 02/17/19 19:40 Alkaline Phosphatase 39 U/L (38-126) 02/17/19 19:40 Total Protein 6.8 g/dL (6.3-8.2) 02/17/19 19:40 Albumin 3.9 g/dL (3.5-5.0) 02/17/19 19:40 Urine Color YELLOW 02/17/19 19:40 Urine Appearance CLEAR 02/17/19 19:40 Urine pH 6.0 (5.0-9.0) 02/17/19 19:40 Ur Specific [place] 1.019 02/17/19 19:40 Urine Protein NEGATIVE mg/dL (NEGATIVE) 02/17/19 19:40 Urine Glucose (UA) NEGATIVE mg/dL (NEGATIVE) 02/17/19 19:40 Urine Ketones NEGATIVE mg/dL (NEGATIVE) 02/17/19 19:40 Urine Blood NEGATIVE (NEGATIVE) 02/17/19 19:40 Urine Nitrite POSITIVE (NEGATIVE) H 02/17/19 19:40 Ur Leukocyte Esterase SMALL (NEGATIVE) H 02/17/19 19:40 Urine WBC (Auto) 60 /HPF 02/17/19 19:40 Urine RBC (Auto) 2 /HPF 02/17/19 19:40 - Vital Signs Vital signs: Temp Pulse Resp BP Pulse Ox 98.2 F 104 H 18 127/92 H 100 02/17/19 18:55 02/17/19 18:55 02/17/19 18:55 02/17/19 18:55 02/17/19 18:55 - Laboratory Result Diagrams: 02/17/19 19:40 02/17/19 19:40 Laboratory results interpreted by me: 02/17/19 02/17/19 02/17/19 19:06 19:40 19:40 WBC 10.6 H RDW 14.1 H POC Glucose 115 H Urine Nitrite POSITIVE H Ur Leukocyte Esterase SMALL H Discharge - Discharge Clinical Impression: Difficulty urinating UTI (urinary tract infection) Qualifiers: Urinary tract infection type: site unspecified Hematuria presence: without hematuria Qualified Code(s): N39.0 - Urinary tract infection, site not specified Condition: Stable Disposition: HOME, SELF-CARE Instructions: Nitrofurantoin ([facility]), Urinary Tract Infection ([facility]) Additional Instructions: *You have been evaluated for difficulty voiding, UTI *Take medication as prescribed *Push fluids *Follow up with your primary care provider within one week for recheck *Return to ED for worsening condition, changes, needs, fever, unable to void Prescriptions: Nitrofurantoin/Nitrofuran Mac [Macrobid 100 mg Capsule] 100 mg PO BID #20 capsule Referrals: SUMAN DARNELL MD [Primary Care Provider] - Follow up in 1 week
[2019-02-17 22:20] VITALS: BP 122/86
== END 2019-02-17 22:21 | disposition home or self-care (01) ==
LOC: ER 18:52
DX: N39.0 Urinary tract infection, site not specified (principal); R33.9 Retention of urine, unspecified; R10.9 Unspecified abdominal pain; R73.9 Hyperglycemia, unspecified; F17.210 Nicotine dependence, cigarettes, uncomplicated; I10 Essential (primary) hypertension
CPT/HCPCS: 99284; 36415; 87086; 82962; 85025; 81025; 87088; 80053; 81001; 87186; 80307; J8499

== ENCOUNTER 2020-04-09 12:31 | Emergency (ER) | payer SELFPAY ==
--- NOTE | 2020-04-09 14:24 | ER Document Report ---
HPI - HPI Patient complains to provider of: Ear pain Time Seen by Provider: 04/09/20 14:13 Pain Level: 3 Context: 29-year-old female with no previous medical problems presents to the emergency room complaining of bilateral ear pain with sinus congestion for the past 4 days. States she was in a Jacuzzi about a week ago and got water in her ears. States she is been taking ibuprofen with minimal relief. Last dose about 4 hours prior to arrival. She denies any chance of . No ill contacts. No COVID-19 exposure. Eating and drinking normally. Associated Symptoms: None Exacerbated by: Denies Relieved by: Denies Similar symptoms previously: No Recently seen / treated by doctor: No - ROS Systems Reviewed and Negative: Yes All other systems reviewed and negative - CONSTITUTIONAL Constitutional: DENIES: Fever - EENT EENT: REPORTS: Ear Pain, Congestion. DENIES: Sore Throat - NEURO Neurology: DENIES: Headache - CARDIOVASCULAR Cardiovascular: DENIES: Chest pain - RESPIRATORY Respiratory: DENIES: Trouble Breathing - REPRODUCTIVE Reproductive: DENIES: : - DERM Skin Color: Normal, [place] Skin Problems: None Past Medical History - General Information source: Patient - Social History Smoking Status: Current Every Day Smoker Chew tobacco use (# tins/day): No Frequency of alcohol use: None Drug Abuse: None Family History: Reviewed & Not Pertinent, Other - There is a family history of epilepsy (the father sister) and elevating muscle cramping (the father). - Past Medical History Cardiac Medical History: Reports: Hx Hypertension - preeclampsia Neurological Medical History: Reports: Hx Migraine, Hx Seizures Renal/ Medical History: Denies: Hx Peritoneal Dialysis Musculoskeletal Medical History: Reports Hx Musculoskeletal Deformity, Reports Hx Musculoskeletal Trauma Skin Medical History: Denies Hx MRSA Psychiatric Medical History: Reports: Hx Anxiety, Hx Attention Deficit Hyperactivity Disorder, Hx Depression - Immunizations Immunizations up to date: Yes Hx Diphtheria, Pertussis, Tetanus Vaccination: Yes - 09/12/12 Vertical Provider Document - CONSTITUTIONAL Agree With Documented VS: Yes Exam Limitations: No Limitations General Appearance: Mild Distress - INFECTION CONTROL TRAVEL OUTSIDE OF THE [place] IN LAST 30 DAYS: No - HEENT HEENT: Atraumatic, Normocephalic, Tympanic Membrane Red, Tympanic Membrane Bulging - Bilateral tympanic membranes bulging with erythema. There is a moderate amount of clear fluid noted behind the bilateral tympanic membranes. Outer ear canals without erythema or swelling. Nose turbinates without erythema or swelling. No drainage noted.. negative: Pharyngeal Tenderness, Pharyngeal Erythema - NECK Neck: Normal Inspection, Supple. negative: Lymphadenopathy-Left, Lymphadenopathy-Right - RESPIRATORY Respiratory: Breath Sounds Normal, No Respiratory Distress - CARDIOVASCULAR Cardiovascular: Regular Rate, Regular Rhythm, No Murmur - MUSCULOSKELETAL/EXTREMETIES Musculoskeletal/Extremeties: FROM - NEURO Level of Consciousness: Awake, Alert, Appropriate Motor/Sensory: No Motor Deficit, No Sensory Deficit - DERM Integumentary: Warm, Dry, No Rash Course - Re-evaluation Re-evalutation: 04/09/20 14:21 Reviewed diagnosis with patient. Counseled to use nasal spray and take antibiotics as prescribed. Outpatient follow-up with a primary care physician if not improving in 2 to 3 days. On-call physician was provided. Patient was given strict return to the emergency room guidelines. Return for any new or worsening symptoms. All questions were answered. Patient verbalized understanding and agrees with plan of care. - Vital Signs Vital signs: Temp Pulse Resp BP Pulse Ox 98.2 F 91 18 145/93 H 100 04/09/20 12:34 04/09/20 12:34 04/09/20 12:34 04/09/20 12:34 04/09/20 12:34 Discharge - Discharge Clinical Impression: Bilateral otitis media Qualifiers: Otitis media type: unspecified Qualified Code(s): H66.93 - Otitis media, unspecified, bilateral Eustachian tube dysfunction Qualifiers: Laterality: bilateral Qualified Code(s): H69.83 - Other specified disorders of Eustachian tube, bilateral Condition: Stable Disposition: HOME, SELF-CARE Instructions: Otitis Media ([facility]) Additional Instructions: Use nasal spray as prescribed. Take antibiotics as prescribed. Outpatient follow-up with a primary care physician if not improving in 2 to 3 days. Return to the emergency room for any new or worsening symptoms. Prescriptions: Amoxicillin 1 tab PO TID #30 tab Fluticasone Propionate [Flonase Nasal Prospect 50 Mcg/Prospect 16 gm] 2 sprays NASL DAILY #1 inhaler Referrals: SUMAN DARNELL MD [Primary Care Provider] - Follow up as needed LATASHA ARIAS MD [COMMUNITY BASED STAFF] - Follow up as needed
[2020-04-09 14:31] VITALS: BP 120/70
== END 2020-04-09 14:30 | disposition home or self-care (01) ==
LOC: ER 12:31
DX: H66.93 Otitis media, unspecified, bilateral (principal); H69.93 Unspecified Eustachian tube disorder, bilateral; R09.89 Other specified symptoms and signs involving the circulatory and respiratory systems; F17.200 Nicotine dependence, unspecified, uncomplicated
CPT/HCPCS: 99283